=== PATIENT | female | born 1945 | race Caucasian/White ===

== ENCOUNTER 2019-07-20 22:07 | Inpatient (IN) | payer MEDICARE, MEDICAID ==
[~2019-07-20] VITALS: Ht 152.4 cm; Wt 68.0 kg
--- NOTE | ~2019-07-20 | PR ---
[place], [place] PROGRESS NOTE NAME: DESIRAE NICOLAS UNIT #: [id number] ROOM: 317 DOCTOR: JACKIE HAYDEN MD BIRTHDATE: [birth year] DOS: 07/26/2019 INTERVAL NOTE CHIEF COMPLAINT: "I slept well, but I'm worried about my son, he is not feeling well." SUMMARY OF THE VISIT: The patient was interviewed in the dining area. She had just started to eat her breakfast. She stopped and engaged in conversation with me, reporting that she tolerated the shot well. She talked to her son yesterday; however, and he is not feeling well and she is very worried. I did discuss the fact that she would have to stay at least another day as we were waiting for the recertification to occur at the skilled nursing level. She nodded in approval and was disappointed, but understood. MENTAL STATUS: She is alert and oriented with time gaps. Mood does seem to be trending towards euthymia. Affect is much more appropriate. There is no tamar, hypomania or psychosis. There is no tardive dyskinesia, extrapyramidal symptoms, sedation or somnolence. PLAN: I will maintain her current psychotropic regimen, continue to engage in individual and cassidy milieu activity, returning to the least restrictive environment when psychiatrically stable. JACKIE HAYDEN MD CM:PNTRANS [id number] JACKIE HAYDEN MD 07/26/19 1058 interface
--- NOTE | ~2019-07-20 | PR ---
[place], [place] PROGRESS NOTE NAME: DESIRAE NICOLAS UNIT #: [id number] ROOM: 317 DOCTOR: JACKIE HAYDEN MD BIRTHDATE: [birth year] DOS: 07/23/2019 INTERVAL NOTE CHIEF COMPLAINT: "I'm still seeing little animals, will that go away." SUMMARY OF THE VISIT: The patient was interviewed as she was finishing her breakfast. She once again reported that she is still seeing things. She also complains of significant pain, although she did tolerate the Zostrix well and is hopeful that it will help give her some relief. MENTAL STATUS: She is alert and oriented with some time gaps. Mood does seem to be trending more towards euthymia. Affect is more appropriate. She still endorses positive psychotic symptoms. Memory has mild gaps. PLAN: Given the fact that she has consistent pain. I will discontinue her Remeron in lieu of Cymbalta 30 mg twice daily. This will impact on mood. I will also positively impact on pain control. I will defer any further pain management to the hospitalist and their expertise. JACKIE HAYDEN MD CM:PNTRANS [id number] JACKIE HAYDEN MD 07/24/19 0145 interface
--- NOTE | ~2019-07-20 | PR ---
[place], [place] PROGRESS NOTE NAME: DESIRAE NICOLAS UNIT #: [id number] ROOM: 317 DOCTOR: JACKIE HAYDEN MD BIRTHDATE: [birth year] DOS: 07/24/2019 CHIEF COMPLAINT: "I feel so much better, thank you." SUMMARY OF THE VISIT: The patient was interviewed as she was sitting at the edge of the dining area. She had already eaten breakfast and was sipping on a cup of coffee. She engaged readily in conversation, reporting that the medication changes have helped and that she is feeling less pain, less depressed and that the voices in her head and the things that she is seeing have both dissipated more and more. She convincingly denies medication side effects. I detailed how she will receive her injection early tomorrow and that the dose will be slightly higher, at which time, I will discontinue her oral Invega. She nodded in approval. MENTAL STATUS: She is alert and oriented with minor time gaps. Mood does seem to be trending towards euthymia. Affect is much more appropriate. There is no tamar or hypomania. There is no gross psychosis. Short term, intermediate, and long-term memory for the most part are intact. PLAN: I will continue her current psychotropics. Engage in individual and cassidy milieu activity, returning to the least restrictive environment when psychiatrically stable. JACKIE HAYDEN MD CM:PNTRANS [id number] JACKIE HAYDEN MD 07/24/19 1222 interface
--- NOTE | ~2019-07-20 | PR ---
[place], [place] PROGRESS NOTE NAME: DESIRAE NICOLAS UNIT #: [id number] ROOM: 317 DOCTOR: JACKIE HAYDEN MD BIRTHDATE: [birth year] DOS: 07/22/2019 INTERVAL NOTE CHIEF COMPLAINT: "Oh, my back really hurts, but I was so pleased, they were able to do x-rays so quick." SUMMARY OF THE VISIT: The patient was interviewed in the dining area and later, she did ask to see me again and we talked briefly in the quiet room. She reports that she does feel that the medication change has helped and that her sleep has dramatically improved. She complained though of significant back pain that is very bothersome and was hoping that she would be able to get some relief. She tolerated the medication changes well and has voiced no other issues. MENTAL STATUS: She is alert and oriented. Mood does seem to be trending towards euthymia. Affect is more appropriate. There is no tamar or hypomania. There is no gross psychosis. Short-term memory has some mild gaps, but for the most part she is fully intact. PLAN: I will continue her current psychotropic regimen, but add Zostrix high potency cream t.i.d. to see if I can alleviate some of her back pain. Engage her in individual and cassidy milieu activity, returning to the least restrictive environment when psychiatrically stable. JACKIE HAYDEN MD CM:PNTRANS [id number] JACKIE HAYDEN MD 07/22/19 1002 interface
--- NOTE | ~2019-07-20 | PR ---
[place], [place] PROGRESS NOTE NAME: DESIRAE NICOLAS UNIT #: [id number] ROOM: 317 DOCTOR: JACKIE HAYDEN MD BIRTHDATE: [birth year] DOS: CHIEF COMPLAINT: "They had a democrat here yesterday and I did not go." SUMMARY OF THE VISIT: The patient was interviewed as she was sitting in the back of the dining room. She was convinced that there was a major democrat here yesterday and she did not go. She was rather bizarre in her presentation. She did not ask me once if she was going to be going home today, which is in delatorre contrast to how she has been previously. Nurses report other bizarre behavior and forgetfulness. MENTAL STATUS: She is alert and oriented to person, place, but not time. Mood does seem to be rather labile and inappropriate. There is no leatha tamar or hypomania. There is some delusional system present. Memory does have gaps. PLAN: I will discontinue her p.o. Invega as she has received the higher dose of the Invega Sustenna already. I will start her on Exelon patch 4.6 mg daily in an effort to maintain or improve ADLs, behavior and cognition. I will screen with UA to rule out a UTI. We will engage her in individual and cassidy milieu activity, returning to the least restrictive environment when psychiatrically stable. JACKIE HAYDEN MD CM:PNTRANS JACKIE HAYDEN MD 07/29/19 0848 interface
--- NOTE | ~2019-07-20 | PR ---
[place], [place] PROGRESS NOTE NAME: DESIRAE NICOLAS UNIT #: [id number] ROOM: 317 DOCTOR: JACKIE HAYDEN MD BIRTHDATE: [birth year] DOS: 07/27/2019 INTERVAL NOTE CHIEF COMPLAINT: "Oh, my son is so sick with a cold, I hope he takes care of himself." SUMMARY OF THE VISIT: The patient was interviewed as she was finishing her breakfast. She engaged readily in conversation, still concerned about her son's health stating that he has a very bad cold and she was concerned about him. She was uncertain if her son was the one that was going to pick her up and if so, he might not be able to do it given his schedule. Otherwise, she reports tolerating the increased dose of the Invega Sustenna well. She does not have any sedation or somnolence. There is no tardive dyskinesia or extrapyramidal symptoms. She also is not sedate in any way from any of the medicines. MENTAL STATUS: She is alert and oriented with some time gaps. Mood does seem to be strongly trending towards euthymia. Affect is more appropriate. There is no tamar, hypomania or psychosis. Memory has some minor gaps, otherwise she is intact. PLAN: I will continue her current psychotropic regimen, continue to engage in individual and cassidy milieu activity, returning to the least restrictive environment when psychiatrically stable. JACKIE HAYDEN MD CM:PNTRANS JACKIE HAYDEN MD 07/27/19 0858 interface
--- NOTE | ~2019-07-20 | WRIGHTHP ---
[place], [place] PATIENT HISTORY AND PHYSICAL EXAM NAME: DESIRAE NICOLAS UNIT #: [id number] ROOM: 317 DOCTOR: JACKIE HAYDEN MD BIRTHDATE: [birth year] DOS: 07/21/2019 CHIEF COMPLAINT: "I have been seeing and hearing things, it has been scaring me." HISTORY OF PRESENT ILLNESS: This is a 73-year-old white female who resides at [facility] in [place], [place]. The patient has a lengthy history of depression as well as psychotic symptomatology. Most recently, her depression has worsened and she has become grossly paranoid and believes that people are watching her when she uses the bathroom and have been following her throughout the facility. She openly admits to hearing voices in her head and seeing things that she realizes are not there. She oftentimes will see animals moving across the floor. This has been more scary for her and she has not been sleeping or eating well. She is admitted now to rule out further organic factors and attempt to stabilize on medication. PAST MEDICAL HISTORY: Remarkable for anemia, history of bipolar disorder, hypertension, hyperlipidemia, hypothyroidism, vitamin D deficiency and schizoaffective disorder. SOCIAL HISTORY: She does not smoke cigarettes, drink alcohol or use illicit drugs. ALLERGIES: SHE LISTS ALLERGIES TO IVP DYE, PENICILLINS, CODEINE, FLUOXETINE, MEPERIDINE, MORPHINE AND PHENAZOPYRIDINE. STRENGTHS: Good verbal skills. WEAKNESSES: Chronic mental health issues, poor coping skills. MENTAL STATUS: On admission, the patient is alert and oriented to person, place, and approximate to time. Mood does seem to be overwhelmingly depressed and she cried throughout the interview. She also is grossly psychotic and openly admits to visual and auditory hallucinations that are scary. There is no agitation or aggression directed towards me. Short term memory does have some gaps, otherwise she is intact. DIAGNOSIS: Major depression, recurrent with psychotic features, rule out schizoaffective disorder. PLAN: I will maintain her on Remeron 15 mg at bedtime. Routine screening examinations reveal a vitamin B12 level that is low at 240, so I will use vitamin B12 injection 1000 mcg IM monthly. She gets an Invega Sustenna injection of 117 mg monthly due on the of the month. She seems to be having breakthrough so I will go ahead and increase her Invega Sustenna maintenance dose to 156 mg IM every month and start this on 07/25/2019. Meanwhile, I will do Invega 3 mg a day to augment the effectiveness of the medication regimen. We will engage her in individual and cassidy milieu activity, returning to the least restrictive environment when psychiatrically stable. [place], [place] PATIENT HISTORY AND PHYSICAL EXAM NAME: DESIRAE NICOLAS UNIT #: [id number] ROOM: [facility] DOCTOR: JACKIE HAYDEN MD BIRTHDATE: [birth year] JACKIE HAYDEN MD CM:HISPHYS:PATIENT HISTORY AND PHYSICAL EXAMINATION [id number] JACKIE HAYDEN MD 07/21/19 1028 interface
--- NOTE | ~2019-07-20 | DS ---
[place], [place] DISCHARGE SUMMARY NAME: DESIRAE NICOLAS UNIT #: [id number] ROOM: 317 DOCTOR: JACKIE HAYDEN MD BIRTHDATE: [birth year] DOS: 08/01/2019 CHIEF COMPLAINT: "I have been seeing and hearing things. It has been scaring me." HISTORY OF PRESENT ILLNESS: This is a 73-year-old white female who resides at [facility] in [place], [place]. The patient has a lengthy history of depression as well as psychotic symptomatology. Most recently, her depression has worsened and she has become grossly paranoid and believes that people are watching her when she uses the bathroom and have been following her throughout the facility. She openly admits to hearing voices in her head and seeing things that she realizes are not there. Often times, she will see animals moving across the floor and realizes that they are not there, but it scares her nonetheless. She has not been sleeping well or eating well because of it and she has not been attending to her ADLs. She is now admitted to rule out organic factors, to stabilize on medication, to engage in individual and cassidy milieu activity, returning then to the least restrictive environment when psychiatrically stable. SUMMARY OF HOSPITAL COURSE: The patient was admitted to the unit where routine examinations revealed a vitamin B12 level that was low at 240, so she was given a vitamin B12 injection of 1000 mcg IM monthly. The patient was receiving Invega Sustenna injections of 117 mg monthly; however, it seems like her psychotic symptomatology was breaking through earlier than the next injection was due. For this reason, the patient was given her neck next injection earlier than previously needed and at the dose of 156 mg. This seemed to break the psychosis dramatically. The patient was maintained on Remeron as an antidepressant, but Cymbalta 30 mg a day was added, later increased to 30 mg twice daily. The hope was that the Cymbalta would impact on her depression as well as decreasing her pain and it mixed well with the Remeron as she felt much better with that combination, the patient was able to sleep through the night. She was eating better. She was attending to her ADLs and she was voicing positive plans for the future. She tolerated the increase in the Invega Sustenna and the addition of the Cymbalta well. There was no sedation, somnolence, extrapyramidal symptoms or tardive dyskinesia. The patient returned back to [facility] where I will be the treating psychiatrist of record. MENTAL STATUS AT DISCHARGE: She is alert and oriented with some time gaps. Mood does seem to be more euthymic. Affect is more appropriate. There is no tamar, hypomania or psychosis. There is no sedation, somnolence, extrapyramidal symptoms or tardive dyskinesia. FINAL DIAGNOSES UPON DISCHARGE: Major depression, recurrent with psychotic features and Alzheimer's dementia. DISPOSITION: All of her prescriptions have been e-scribed to [facility], a long-term care pharmacy. The patient is returning back to [facility]. I will be the treating psychiatrist of record. At the time of discharge, she was medically and psychiatrically stable. [place], [place] DISCHARGE SUMMARY NAME: DESIRAE NICOLAS UNIT #: [id number] ROOM: [facility] DOCTOR: JACKIE HAYDEN MD BIRTHDATE: [birth year] ADDENDUM: CHIEF COMPLAINT: "Oh, call my son, I am so happy. I am going home." SUMMARY OF THE VISIT: The patient was evaluated as she was sitting in a [place]. She was pleasant and cooperative upon approach, fixated on getting a hold of her son. She was happy to hear finally that she was returning back to [facility]. Overall, her speech was much more goal oriented than she was not expressing mood lability or depression. She also outwardly was tolerating the medicine well. MENTAL STATUS AT DISCHARGE: The patient is alert and oriented to person, place, not time. Mood does seem to be euthymic. Affect is much more appropriate. Speech rate and pattern is within normal limits. There is no tamar, hypomania or psychosis. Short term memory is still problematic. DISCHARGE DIAGNOSIS AND DISPOSITION: As per the discharge summary dictated on 08/01/2019. PLAN: All of her prescriptions have been e-scribed to [facility], a long-term care provider. She will be returning to [facility] where I will be the treating psychiatrist of record. JACKIE HAYDEN MD CM:DISCHARG [phone] JACKIE HAYDEN MD 08/04/19 1042 interface
--- NOTE | ~2019-07-20 | PR ---
[place], [place] PROGRESS NOTE NAME: DESIRAE NICOLAS UNIT #: [id number] ROOM: 317 DOCTOR: ABIMAEL BEEBE CNP BIRTHDATE: [birth year] DOS: 07/30/2019 CHIEF COMPLAINT: "We all got together, did not we." SUMMARY OF THE VISIT: The patient was interviewed as she sat in the dining room, eating her breakfast. She engaged readily in conversation with me. She reports that she did sleep well last night. She denies any auditory or visual hallucinations. Staff reports that this patient has attempted to put herself on the floor and has attempted to be exit seeking. She is requesting that she leave today. The patient's urinalysis did have leukocytes and bacteria, so a urine culture is currently pending. MENTAL STATUS EXAMINATION: The patient is alert and oriented to person and place. She was pleasant and cooperative with me. No tamar or hypomania noted. No delusions or paranoia noted. No psychotic symptoms noted. No auditory or visual hallucinations noted. The patient's mood was calm. Her affect is congruent with mood. No agitation, irritability or aggression noted at this time. PLAN: We will continue the patient's medications as prescribed. She appears to be tolerating them without any side effects. We are currently awaiting the patient's urine culture results to rule out that the patient does have urinary tract infection. In the meantime, we will encourage the patient to engage in individual and cassidy milieu activity. Continue fall and safety precautions. Plan is to return the patient to least restrictive environment when she is considered psychiatrically stable. Abimael Beebe CNP CM:PNTRANS [id number] ABIMAEL BEEBE CNP 07/30/19 0932 interface
--- NOTE | ~2019-07-20 | PR ---
[place], [place] PROGRESS NOTE NAME: DESIRAE NICOLAS UNIT #: [id number] ROOM: 317 DOCTOR: JACKIE HAYDEN MD BIRTHDATE: [birth year] DOS: 07/25/2019 CHIEF COMPLAINT: "Oh, I just love you, thank you for helping me." SUMMARY OF THE VISIT: The patient was interviewed as she was finishing her breakfast. We chatted as to the game plan, which is for her to receive her dose of Invega Sustenna slightly earlier than expected and at the higher dose of 156 mg q. month now versus 117. She asked if after the injection if she could go home, but I deferred that I would like 24 hours after the injection to monitor her closely for the presence or absence of side effects. She nodded in approval. Otherwise, she reports that the medication changes have made a great impact on her positively and she is feeling happier in less pain and less anxious. She convincingly denies medication side effects. MENTAL STATUS: She is alert and oriented to person, place and time. Mood does seem to be strongly trending towards euthymia. Affect is more appropriate. There is no tamar, hypomania or psychosis. Memory for the most part is intact. PLAN: She is scheduled to have Invega Sustenna 156 mg IM today. Given that fact, I will discontinue her oral Invega. We will monitor and support, engage her in individual and cassidy milieu activities, returning to the least restrictive environment when psychiatrically stable. JACKIE HAYDEN MD CM:PNTRANS [id number] JACKIE HAYDEN MD 07/25/19 1026 interface
--- NOTE | ~2019-07-20 | PR ---
[place], [place] PROGRESS NOTE NAME: DESIRAE NICOLAS UNIT #: [id number] ROOM: 317 DOCTOR: ABIMAEL BEEBE CNP BIRTHDATE: [birth year] DOS: 07/31/2019 CHIEF COMPLAINT: "I am going to keep mumbling." SUMMARY OF THE VISIT: The patient was interviewed as she sat in the dining room, eating her breakfast. The patient did not want to engage in any conversation with me. The patient did not want to open her eyes. She had to continue to be encouraged by staff to eat her breakfast. Staff reports that the patient has seemed more confused this morning. She was given a p.r.n. Ativan at 5:30 last night for increased agitation and irritability. She did put herself on the floor last night. It was witnessed by her peers. MENTAL STATUS EXAMINATION: The patient is alert and oriented to herself. She is irritable, not cooperative with me this morning. No overt tamar or hypomania noted. No delusions or paranoia noted. No psychotic symptoms noted. No auditory or visual hallucinations noted. The patient's mood agitated. Affect congruent with mood. No aggression noted. PLAN: The urine culture and sensitivity is still pending. I will increase the patient's Exelon to 9.5 mg to try to increase awareness and cognition. I am also going to order a serum ammonia level to be drawn in the morning. Continue to encourage the patient to engage in individual and cassidy milieu activity. Continue fall and safety precautions. Plan is to return the patient to the least restrictive environment when she is considered psychiatrically stable. Abimael Beebe CNP CM:PNTRANS 0956 ABIMAEL BEEBE CNP 07/31/19 0957 interface
--- NOTE | ~2019-07-20 | PR ---
[place], [place] PROGRESS NOTE NAME: DESIRAE NICOLAS UNIT #: [id number] ROOM: 317 DOCTOR: JACKIE HAYDEN MD BIRTHDATE: [birth year] DOS: 07/28/2019 INTERVAL NOTE CHIEF COMPLAINT: "This is ridiculous that I am still here. Why can't I go back to my home." SUMMARY OF THE VISIT: The patient was interviewed as she was wheeling up and down the hallway. She stopped and engaged in conversation. She was initially very angry with me because she was still here and I explained to her the holdup is purely because of the paperwork not being done by state. She very angrily then stated that she wanted to report the state to someone because she is here longer than she needs to be and wants to go back to her [facility]. She was pleasant and cooperative otherwise. There is no tamar, hypomania or psychosis and there is no medication side effect. MENTAL STATUS: She is alert and oriented with some minor time gaps. Mood does seem to be euthymic. Affect is appropriate. There is no tamar, hypomania or psychotic symptoms noted. PLAN: At this point, we are simply waiting for the paperwork from the state to come in, so that I may discharge her appropriately back to the long-term care facility. She has been here many days past the time that she needed to be here all because of the lack of paperwork being done in a timely fashion. JACKIE HAYDEN MD CM:PNTRANS [phone] JACKIE HAYDEN MD 07/28/19 1032 interface
--- NOTE | ~2019-07-20 | CON ---
[place], [place] REPORT OF CONSULTATION NAME: DESIRAE NICOLAS UNIT #: [id number] ROOM: 317 DOCTOR: TITUS, FARAZ BIRTHDATE: [birth year] DOS: 08/01/2019 HISTORY OF PRESENT ILLNESS: The patient is a 73-year-old female referred by Dr. Pantoja for competency evaluation. At the present time, the patient is on the 3rd floor at [facility]. The patient is a resident at [facility]. She has a long history of depression with psychosis. She was admitted to the [facility] after her depression worsened and she became paranoid and was hallucinating. She does not drink alcohol or use illegal drugs or smoke cigarettes and that history was limited to her condition. PAST MEDICAL HISTORY: Anemia, bipolar disorder, hypertension, hyperlipidemia, hypothyroidism, vitamin D deficiency, schizoaffective disorder. MEDICATIONS: Exelon, Invega Sustenna, Maalox, Cymbalta, Zostrix, Remeron, B12, Zocor, Toprol-XL, Esidrix, Feosol, vitamin D, aspirin enteric coated, Cogentin, Lamictal, Synthroid, Ultram, Geodon, Ativan. The patient was lying comfortably, in no apparent distress. She was somnolent. She was oriented to person, month and year. Mood was stable. Affect was flat. There was no suicidal or homicidal ideation, plan or intent. She responded to questions with one word answers. Speech was slurred. She was not able to provide her past medical history or any medications she is taking. She does not appear to be responding to internal stimuli. In my opinion, she is not competent to make informed healthcare decisions. DIAGNOSES: Unspecified, neurocognitive disorder; major depressive disorder, recurrent with psychotic features. RECOMMENDATIONS: In my opinion, the patient is not competent to make informed healthcare decisions. She may benefit from guardianship if her cognition does not improve. Thank you very much for this consult. Helga Navarro, PhD CM:CONSTR:REPORT OF CONSULTATION [id number] 08/02/19 1312 interface
[2019-07-20] MEDS ORDERED: ASPIR 8181 MG PO (22:23)
[2019-07-20] MEDS ORDERED: CETIRIZINE HCL10 MG PO (22:23)
[2019-07-20] MEDS ORDERED: FEOSOL325 MG PO (22:24)
[2019-07-20] MEDS ORDERED: HYDR12.5C PO (22:25)
[2019-07-20] MEDS ORDERED: INVEGA SUSTENN117 MG IM (22:26)
[2019-07-20] MEDS ORDERED: LEVOTHYROXINE150 MCG PO (22:27)
[2019-07-20] MEDS ORDERED: METOPROLOL SUCC50 M1 PO (22:28)
[2019-07-20] MEDS ORDERED: POTASSIUM20 MEQ/16 PO (22:29)
[2019-07-20] MEDS ORDERED: SENNA8.6 MG PO (22:30)
[2019-07-20] MEDS ORDERED: REMERON30 M1 PO (22:30)
[2019-07-20] MEDS ORDERED: SIMVASTATIN40 MG PO (22:31)
[2019-07-20] MEDS ORDERED: VITAMIN D31000 UNI1 PO (22:32)
[2019-07-20] MEDS ORDERED: LAMICTAL200 MG PO (22:32)
[2019-07-20] MEDS ORDERED: ACETAMINOPHEN325 M2 PO (22:33)
[2019-07-20] MEDS ORDERED: BENZTROPINE MESY1 MG PO (22:33)
[2019-07-20] MEDS ORDERED: ATIVAN0.5 MG PO (22:36)
[2019-07-20] MEDS ORDERED: [UNRECOGNIZED DRUG - OTHER] PO (22:38)
[2019-07-20] MEDS ORDERED: HYDROXYZINE PAM25 M1 PO (22:39)
[2019-07-20] MEDS ORDERED: MILK OF MA400 MG/51 PO (22:40)
[2019-07-20] MEDS ORDERED: MYLANTA MAXIMU355 M1 PO (22:41)
[2019-07-20] MEDS ORDERED: TRAMADOL HCL50 MG PO (22:42)
[2019-07-21 01:10] VITALS: BP 136/87
[2019-07-21 01:45] VITALS: BP 136/87
[2019-07-21 07:02] LABS: CHOLESTEROL 123 mg/dL (<200); HDL CHOLESTEROL 51 mg/dl (40-60); LDL CHOLESTEROL 60 mg/dL (9-159); TRIGLYCERIDES 61 mg/dl (<150); VLDL CHOLESTEROL 12 mg/dL (6-40)
[2019-07-21 08:00] VITALS: BP 129/60
[2019-07-21 08:59] LABS: VITAMIN D, 25-HYDROXY 35.9 ng/mL (30-100)
[2019-07-21 20:28] VITALS: BP 110/88
[2019-07-22 08:00] VITALS: BP 117/65
[2019-07-22 19:59] VITALS: BP 130/60
[2019-07-23 07:38] VITALS: BP 136/65
[2019-07-23 19:34] VITALS: BP 131/55
[2019-07-24 07:22] VITALS: BP 102/58
[2019-07-24 19:38] VITALS: BP 101/60
[2019-07-25 09:07] VITALS: BP 118/76
[2019-07-25 19:19] VITALS: BP 125/54
[2019-07-26 08:00] VITALS: BP 123/69
[2019-07-26 19:03] VITALS: BP 120/53
[2019-07-27 08:00] VITALS: BP 127/56
[2019-07-27 19:36] VITALS: BP 130/67
[2019-07-28 08:05] VITALS: BP 137/64
[2019-07-28 19:12] VITALS: BP 129/61
[2019-07-29 07:49] VITALS: BP 135/62
[2019-07-29 15:37] LABS: BILIRUBIN NEGATIVE (NEGATIVE); BLOOD NEGATIVE (NEGATIVE); CLARITY CLEAR (CLEAR); COLOR YELLOW (YELLOW); GLUCOSE NEGATIVE (NEGATIVE); KETONE NEGATIVE (NEGATIVE); LEUKO ESTERASE 1+ (NEGATIVE); NITRITE NEGATIVE (NEGATIVE); UROBILINOGEN 0.2 E.U./dl (0.2-1.0)
[2019-07-29 15:43] LABS: BACTERIA 2+; RBC 0-2 rbc/hpf (0-2)
[2019-07-29 19:14] VITALS: BP 134/58
[2019-07-30 07:25] VITALS: BP 106/70
[2019-07-30 19:11] VITALS: BP 120/61
[2019-07-31 07:44] VITALS: BP 135/67
[2019-07-31 19:49] VITALS: BP 137/70
[2019-08-01 07:34] VITALS: BP 116/75
[2019-08-01] MEDS ORDERED: BENZTROPINE MESY1 MG PO (08:44)
[2019-08-01] MEDS ORDERED: RIVASTIGMINE1 EAC1 T (08:44)
[2019-08-01] MEDS ORDERED: INVEGA SUSTENN156 MG IM (08:44)
[2019-08-01] MEDS ORDERED: DULOXETINE HCL30 MG PO (08:44)
[2019-08-01] MEDS ORDERED: MIRTAZAPINE15 M2 PO (08:44)
[2019-08-01] MEDS ORDERED: B121000 MCG/1 IM (08:44)
[2019-08-01] MEDS ORDERED: ARTHRITIS PAIN57 GM T (08:45)
[2019-08-01 19:47] VITALS: BP 112/72
[2019-08-02 07:33] VITALS: BP 141/64
[2019-08-02 19:54] VITALS: BP 132/60
[2019-08-03 07:32] VITALS: BP 136/74
[2019-08-03 19:30] VITALS: BP 130/70
[2019-08-04 07:46] VITALS: BP 118/61
[2019-08-04] MEDS ORDERED: PALIPERIDONE ER6 MG PO (10:11)
== END 2019-08-04 13:36 | DRG 885 ==
LOC: 3N 22:07
PROVIDERS: ADMIT Psychiatry & Neurology Psychiatry
DX: F33.3 Major depressive disorder, recurrent, severe with psychotic symptoms (principal); N30.00 Acute cystitis without hematuria; E66.3 Overweight; R73.9 Hyperglycemia, unspecified; F41.9 Anxiety disorder, unspecified; E03.9 Hypothyroidism, unspecified; I10 Essential (primary) hypertension; R41.9 Unspecified symptoms and signs involving cognitive functions and awareness; E55.9 Vitamin D deficiency, unspecified; E78.5 Hyperlipidemia, unspecified; M54.9 Dorsalgia, unspecified; G30.9 Alzheimer's disease, unspecified; F02.80 Dementia in other diseases classified elsewhere, unspecified severity, without behavioral disturbance, psychotic disturbance, mood disturbance, and anxiety; Z88.0 Allergy status to penicillin; Z88.5 Allergy status to narcotic agent; Z88.8 Allergy status to other drugs, medicaments and biological substances; Z91.041 Radiographic dye allergy status; Z79.82 Long term (current) use of aspirin; Z79.899 Other long term (current) drug therapy; Z68.29 Body mass index [BMI] 29.0-29.9, adult

== ENCOUNTER 2019-08-12 13:33 | Inpatient (IN) | payer MEDICARE, MEDICAID ==
[~2019-08-12] VITALS: Ht 152.4 cm; Wt 66.4 kg
[~2019-08-12 13:33] MED LIST: ACETAMINOPHEN325 M2 PO; ARTHRITIS PAIN57 GM T; ASPIR 8181 MG PO; ATIVAN0.5 MG PO; B121000 MCG/1 IM; BENZTROPINE MESY1 MG PO; CETIRIZINE HCL10 MG PO; DULOXETINE HCL30 MG PO; FEOSOL325 MG PO; HYDR12.5C PO; HYDROXYZINE PAM25 M1 PO; INVEGA SUSTENN117 MG IM; INVEGA SUSTENN156 MG IM; LAMICTAL200 MG PO; LEVOTHYROXINE150 MCG PO; METOPROLOL SUCC50 M1 PO; MILK OF MA400 MG/51 PO; MIRTAZAPINE15 M2 PO; MYLANTA MAXIMU355 M1 PO; PALIPERIDONE ER6 MG PO; POTASSIUM20 MEQ/16 PO; REMERON30 M1 PO; RIVASTIGMINE1 EAC1 T; SENNA8.6 MG PO; SIMVASTATIN40 MG PO; TRAMADOL HCL50 MG PO; VITAMIN D31000 UNI1 PO; [UNRECOGNIZED DRUG - OTHER] PO
[2019-08-12] MEDS ORDERED: RISPERDAL1 M1 PO (15:04)
[2019-08-12 20:00] VITALS: BP 152/78
--- NOTE | 2019-08-12 20:15 | NUR ---
DESIRAE NICOLAS a 73 year old F admitted via wheel chair from the EMERGENCY ROOM as a voluntary by POA admission. Arrived on unit at 2000PM. ALLERGIES: CODIENE, FLUOXETINE, DEMEROL, MORPHONE, PCN, IVP DYE, PHENAZOPYRIDINE. Vital signs are: -- . The POA signed the following forms with stated understanding: Authorization For The Release of Medical Information, Clothing List, Consent to Voluntary Admission and Hospitalization, Consent and Release Forms/Receipt of Rights, Acknowledgement of Advance Directive Information, Behavioral Health Consent Form, and Informed Consent of Medications. Admitted under the services of Dr. CATRACHO WATTJACKIE. A search was conducted and hazardous articles were removed. Client was oriented to the unit. CLIENT IS CONFUSED TO DATE AND TIME. THINKS I AM HER MOTHER. DIFFICULTY TO REDIRECT AT THIS TIME. PLEASENT AND COOPERATIVE BUT UNABLE TO FULLY PARTICIPATE WITH ASSESSMENT. REFUSES SKIN ASSESSMENT STATING "I HAVE NO WOUNDS" MACY CRISTOBAL
--- NOTE | 2019-08-12 20:23 | NUR ---
DR VILLALOBOS NOTIFIED OF ADMISSION AT 2019PM PHYLICIA SMITH NOTIFIED OF ADMISSION AT M
[2019-08-12 21:00] VITALS: BP 152/78
--- NOTE | 2019-08-13 03:30 | NUR ---
24 HR chart check completed.
--- NOTE | 2019-08-13 05:26 | NUR ---
SLEPT WELL PAST 2200PM
[2019-08-13 07:28] LABS: THYROID STIM HORMONE (HS) 8.12 uIU/ml (0.358-4.75)
[2019-08-13 07:48] VITALS: BP 122/64
--- NOTE | 2019-08-13 08:00 | NUR ---
Patient resting quietly with no c/o discomfort. Respirations easy and regular. Vital signs stable. No overt distress. ANURAG LEE
[2019-08-13 08:54] LABS: VITAMIN D, 25-HYDROXY 33.6 ng/mL (30-100)
--- NOTE | 2019-08-13 11:53 | NUR ---
AM GROUP/EXERCISES/BALL TOSS PT ATTENDED BUT SLEPT IN CHAIR IN BACK OF ROOM ENTIRE GROUP. PT WILL CONTINUE TO ATTEND AND BE ENCOURAGED TO PARTICIPATE TO BEST OF PT ABILITY.
--- NOTE | 2019-08-13 12:13 | NUR ---
PT PLEASANT THIS AM, PT PRESENTS WITH SOME DIFFICULTY STAYING ON TASK IN CUTTING UP TOAST FOR BREAKFAST TRAY AND FALLING ASLEEP WHILE EATING LUNCH. PT REDIRECTED, PROVIDED WITH ENCOURAGEMENT AND ASSISTANCE AT MEALS. PT RECEPTIVE, TAKING SMALL BITES INDEPENDENTLY WITH SOME ENCOURAGEMENT. WILL CONTINUE TO REDIRECT PT TO TASK WHEN APPROPRIATE. WILL CONTINUE TO ADMINISTER MEDICATIONS PER ORDER. Q 15 MIN MONITORING PER POLICY.
--- NOTE | 2019-08-13 15:39 | NUR ---
PM GROUP/LEISURE SKILLS PT ATTENDED AND PARTICIPATED BY COLORING A [employer] PICTURE. PT TAKES A WHILE TO DO A LITTLE BIT BUT STATES "I'M FEELING MUCH BETTER RIGHT NOW". PT WILL CONTINUE TO ATTEND AND PARTICIPATE IN FUTURE GROUP SESSIONS TO BEST OF PT ABILITY.
--- NOTE | 2019-08-13 18:10 | NUR ---
psychosocial hx was completed last admission which was within 30 days, please refer to that hx. please see short and watermelon harvesting supervisor goals.
[2019-08-13 19:44] VITALS: BP 121/61
--- NOTE | 2019-08-13 21:06 | NUR ---
PLEASENT HAPPY AND COOPERATIVE. ORIENTED TO SELF, PLACE AND PARTIAL TIME. ATE WELL FOR SNACK. MEDICATION EDUCATION COMPLETED. STATES SHE HAD A GOOD DAY. NO SIGNS OF HALLUCINATIONS, CRYING FOR MOMMY OR CRAWLING ON FLOOR. WILL CONTINUE TO MONITOR FOR CHANGES IN MOOD/BEHAVIOR
--- NOTE | 2019-08-14 01:23 | NUR ---
24 HR chart check completed.
--- NOTE | 2019-08-14 05:32 | NUR ---
SLEPT WELL PAST 2230PM
--- NOTE | 2019-08-14 06:24 | NUR ---
ONE INCIDENT OF CONFUSION THIS MORNING. CALLING [facility]
[2019-08-14 07:37] VITALS: BP 140/57
--- NOTE | 2019-08-14 08:06 | NUR ---
Patient resting quietly with no c/o discomfort. Respirations easy and regular. Vital signs stable. No overt distress. ANURAG LEE
--- NOTE | 2019-08-14 12:36 | NUR ---
PT HAS HAD NO ADVERSE MOODS OR BEHAVIORS THIS SHIFT. PT IS ALERT TO PERSON AND APPROXIMATE TO TIME, ABLE TO STATE TIME AND YEAR. PT IS ACTIVELY PARTICIPATING IN ACTIVITY, COLORING WITH STAFF AND PEERS. PT MOOD IS PLEASANT, COOPERATIVE. PT IS ABLE TO STAY MORE FOCUSED ON TASK AT HAND TODAY, ABLE TO FEED SELF ENTIRE MEAL WITHOUT BECOMING DISTRACTED. WILL CONTINUE TO ADMINISTER MEDICATIONS AND MONITOR BEHAVIORS. WILL CONTINUE TO MONITOR Q15 MIN PER POLICY FOR SAFETY.
[2019-08-14 20:03] VITALS: BP 121/62
--- NOTE | 2019-08-14 23:06 | NUR ---
P-CONFUSION, NONSENSICAL SPEECH, CALLING STAFF "MOMMY". I-ASSESS ORIENTATION. PRESENT REALITY OR REDIRECT NEEDED. PROVIDE 1:1 WITH THERAPEUTIC INTERVENTIONS. ENCOURAGE MEDICATION COMPLIANCE AND EDUCATE. MONITOR SLEEP. R-"IM LOOKING FOR MY JINGLE BELLS, ITS JUST THAT, IT, COMING AROUND, PEANUT BUTTER". PT ALERT TO PERSON WITH CONFUSION, ST/LT MEMORY DEFICITS NOTED. PT'S SPEECH REMAINS NONSENSICAL WITH FLIGHT OF IDEAS. PT MINIMALLY RECEPTIVE REALITY PRESENTATION AND REQUIRES FREQUENT REDIRECTION THROUGHOUT SHIFT. PTS MOOD EUTHYMIC, PREOCCUPIED WITH SELF, OBSERVED BY STAFF SINGING THE ALPHABET AND NUMBERS. PT COMPLIANT WITH HS SNACK AND HS MEDICATION WITHOUT DIFFICULTY. UNABLE TO PROVIDE MEDICATION EDUCATION DUE TO COGNITION. PT VOICES NO SI/HI, HALLUCINATIONS, OR PAIN. NO PARANOIA/DELUSIONS NOTED. PT'S GAIT UNSTEADY, MOBILIZES SELF THROUGHOUT UNIT WITH A MERRY WALKER. COOPERATIVE WITH ADL'S, ASSIST X1. PT RESTING QUIETLY WITH EYES CLOSED. RESPIRATIONS EASY AND REGULAR, NO SIGNS OR SYMPTOMS OF DISTRESS NOTED. P-CONTINUE TO MONITOR MOOD AND BEHAVIORS. PROVIDE 1:1 WITH THERAPEUTIC INTERVENTIONS. PRESENT REALITY AND REDIRECT NEEDED. ENCOURAGE MEDICATION COMPLIANCE AND EDUCATE. MAINTAIN Q 15 MIN CHECKS.
--- NOTE | 2019-08-15 04:41 | NUR ---
24 HOUR CHART CHECK COMPLETED.
--- NOTE | 2019-08-15 05:39 | NUR ---
PATIENT OBSERVED ON Q 15 MIN CHECKS TO HAVE SLEPT APPROX 7 HOURS WITH X1 BRIEF AWAKENING TO USE THE RESTROOM WITH ASSISTANCE. NO SIGNS OR SYMPTOMS OF DISTRESS NOTED.
--- NOTE | 2019-08-15 07:30 | NUR ---
Patient resting quietly with no c/o discomfort. Respirations easy and regular. Vital signs stable. No overt distress. PHYLICIA BERGER
--- NOTE | 2019-08-15 08:15 | NUR ---
Treatment Plan meeting was held this a.m. with Dr. Pantoja, RN, AT, BAR MACHINE OPERATOR MULTIPLE SPINDLE-S and School Traffic Guard. Plan for discharge at the end of the week, beginning of next week. Pt. came to [facility] from [facility]. Will reach out to facility today to discuss discharge plans.
[2019-08-15 08:29] VITALS: BP 127/61
--- NOTE | 2019-08-15 08:53 | NUR ---
DR. CHARLES ON UNIT TO ASSESS PATIENT.
--- NOTE | 2019-08-15 10:10 | NUR ---
Spoke with Nola in Admissions at [facility]. Pt. will return to facility at discharge. Clinical Updates Faxed to Facility.
--- NOTE | 2019-08-15 14:43 | NUR ---
Patient was very confused this afternoon. She kept speaking of Tami and that she needed to get to her. At one point, she thought this financial writer was Tami. Attempted to redirect pt to a different topic but pt would return to speaking of Tami.
--- NOTE | 2019-08-15 18:08 | NUR ---
PATIENT IN DINING ROOM WITH OTHER PATIENTS AND FAMILY VISITOR. PERSONAL ALARM SOUNDING. PATIENT OBSERVED HOPPING SELF OUT OF CHAIR AND ON TO FLOOR. VISITORS REPORTED TO STAFF THAT PAIENT DID NOT HIT HEAD. DR. INGRAM ON UNIT AT THIS TIME, ASSESSED PATIENT. PATIENT ASSISTED FROM FLOOR INTO GERICHAIR. PATIENT IRRITABLE AND ANXIOUS, YELLING AT STAFF "I WANT TO GO HOME" VITALS: T:97.4, 102/52, 89, 18, 95%RA, VITALS REPORTED TO DR. INGRAM WHILE ON UNIT. CONTINUE TO MONITOR AT THIS TIME. CHANNEL CEMENTER OUTSOLE MACHINE AND DESIGN PRINTER BALLOON NOTIFIED. CALLED POA WITH SEVERAL ATTEMPTS. PHONE RANG BUSY.
[2019-08-15 20:00] VITALS: BP 110/62
--- NOTE | 2019-08-15 20:27 | NUR ---
EVENING/MOVIE PT INVITED TO JOIN GROUP BUT STATES WITH AGITATION "I DONT WANT TO WATCH A MOVIE I WANT TO GO HOME!" PT WILL CONTINUE TO BE ENCOURAGED TO ATTEND AN DPARTICIPATE IN FUTURE GROUP SESSIONS TO BEST OF ABILITY.
--- NOTE | 2019-08-15 21:05 | NUR ---
P--CONFUSION I--DISCUSSED DAYS EVENTS WITH CLIENT. OFFERED COPING SKILLS TO HELP. CLIENT ABLE TO REMEMBER MY NAME. REVIEWED MEDICATIONS R--MACY I NEED MY MEDICINES. I FELL TODAY BECAUSE I WAS TRYING TO HELP TYSON. P-MONITOR FOR MOOD/BEHAVIOR CHANGES AND SAFETY.
--- NOTE | 2019-08-16 02:47 | NUR ---
24 HR chart check completed.
--- NOTE | 2019-08-16 06:02 | NUR ---
SLEPT 8 UNBROKEN HOURS. MOVES SELF AROUND IN BED. CONTINUE MONITORING Q 15 MINS AND PRN FOR SAFETY
[2019-08-16 08:14] VITALS: BP 122/57
--- NOTE | 2019-08-16 08:15 | NUR ---
Treatment Plan meeting was held this a.m. with Dr. Pantoja, RN, AT, SHORE WORKER-S and Grinder Mill Operator. plan for discharge Next week. At this point Patient will return to [facility] at discharge.
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
--- NOTE | 2019-08-16 10:32 | NUR ---
PRN ATIVAN EFFECTIVE; PATEINT IN CALM DEMEANOR, WATCHING TV IN DINING ROOM.
--- NOTE | 2019-08-16 10:46 | NUR ---
DR. ALVAREZ ON UNIT TO ASSESS PATEINT.
--- NOTE | 2019-08-16 11:34 | NUR ---
AM GROUP PT ATTENDED MORNING GROUP THERAPY AND PARTICIPATED BY COLORING WITH MARKERS. PT WAS FOCUSED ON "CALLING USAMA" AND WHILE COLORING REPEATED OVER AND OVER, "USAMA,AJ,USAMA" PT BEGAN COLORING ON THE TABLE AND ON HER HAND. PT WAS REDIRECTED BUT WAS NOTED TO BE COLORING WITH HER EYES CLOSED. PT WAS GIVE A WIPE AND CLEANED BOTH HER HAND AND THE TABLE. PT EXHIBITED NO AGITATION AND EXPRESSED NO HALLUCINATIONS WHILE IN GROUP.
--- NOTE | 2019-08-16 13:40 | NUR ---
Spoke with Araceli at [facility]. Pt. requires onsite Assessment. Requested that Vessel Scrapper Helper speak with family who is Power of Director Compliance Prior to Speaking with patient. Updated Daisha Construction Site Crossing Guard that Nursing would need to Assist Patient during Assessment.
[2019-08-16 20:00] VITALS: BP 118/58
--- NOTE | 2019-08-16 20:34 | NUR ---
EVENING/MUSIC/HYMNS PT RELAXING WATCHING MUSIC VIDEOS. PT REMAINS PLEASANT AND WOULD TALK OFF TOPIC AT TIMES. PT EASILY REDIRECTED WITH NO AGITATIONN OR HALLUCINATIONS EXPRESSED.
--- NOTE | 2019-08-16 23:05 | NUR ---
P--CONFUSION I--TALKED ABOUT HER DAY. DISCUSSED POSSIABLE COPING TECHNIQUES. REORIENTED TO PLACE DATE AND TIME. REVIEWED MEDICATION PRIOR TO GIVING. R--OH HI, OK I AM WATCHING THIS MOVIE. CAN I GO TO BED SOON. P--MONITOR FOR CHANGES IN BEHAVIOR, MOOD AND SAFETY
--- NOTE | 2019-08-17 04:48 | NUR ---
24 HR chart check completed.
--- NOTE | 2019-08-17 06:17 | NUR ---
SLEPT WELL ALL SHIFT
[2019-08-17 07:35] VITALS: BP 121/60
--- NOTE | 2019-08-17 08:15 | NUR ---
Treatment Plan meeting was held with Dr. Pantoja, RN, AT, SPRAY TECHNICIAN-S and Early Head Start Director in attendance. Plan for discharge Thursday or Thursday. Pt. at this time will return to [facility] at discharge. Awaiting Resident Review Onsite Assessment with [facility] to review.
--- NOTE | 2019-08-17 09:40 | NUR ---
Occupational Therapy evaluation completed on 3 with full eval to follow. Precautions include fall risk; bed /chair alarm, impulsive, inconsistant ADL performance,moderate complexity level 23885. Recommend OT per POC and return to half-way w/ OT to meet established goals. Thank you. Rosario Benjamin Otr/l
--- NOTE | 2019-08-17 10:40 | NUR ---
DR. ALVAREZ ON UNIT TO ASSESS PT, UPDATE PROVIDED.
--- NOTE | 2019-08-17 12:19 | NUR ---
Spoke with Nola at [facility]. Provided with Updates and discussed discharge plans. Pt. appeal to Resident Review Denial Court Date set for Aug 19 8:00 a.m. Clinical Updates faxed to [facility] Attn: Nola [phone].
--- NOTE | 2019-08-17 12:39 | NUR ---
AM GROUP PT WAS PRESENT FOR MORNING GROUP THERAPY SITTING IN THE [facility]. PT WAS QUIET FOR THE MOST PART AND EVEN REQUESTED TO COLOR. PT BEGAN REPEATING SOMATIC COMPLAINTS THAT A PEER WAS VOICING NONSTOP,..."MY LEG IS NUMB" ETC. PT EXHIBTED NO AGITATION OR EXPRESSED ANY HALLUCINATIONS WHILE IN GROUP AND ONLY ASKED ABOUT "USAMA" ONE TIME.
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
--- NOTE | 2019-08-17 16:42 | NUR ---
P: PT IRRITABLE WITH STAFF AND PEERS. PT RESTLESS I: PROVIDE EMOTIONAL SUPPORT AND 1:l FOR PT TO VOICE FEELINGS, PROVIDE DIVERSIONAL ACTIVITIES R: PT CONTINUES TO BE IRRITABLE WITH STAFF AND PEERS. PT ALERT TO PERSON AND TIME. PT THINKS SHE IS AT [facility]. PT CONTINUES TO BE IRRITABLE AT TIMES WITH STAFF AND PEERS. PT DID SPEND SOME TIME THIS AFTERNOON COLORING WITH STAFF AND PEER. PT UP TO [facility], THROUGHOUT THE DAY, WILL PROPEL SELF SHORT DISTANCES IN IT. PT CONTINENT OF BOWEL AND BLADDER, EPISODES OF INCONTINENCE NOTED, CARE PROVIDED NEEDED. P: MONTIOR PT BEHAVIORS ON Q15 MIN SAFETY CHECKS, ENCOURAGE MED COMPLIANCE AND PROVIDE MED EDUCATION, ENCOURAGE PT TO PARTICIPATE IN DIVERSIONAL ACTIVITES, PROVIDE EMOTIONAL SUPPORT AND 1:1 FOR PT TO VOICE FEELINGS
[2019-08-17 19:56] VITALS: BP 136/69
--- NOTE | 2019-08-17 20:23 | NUR ---
Patient quietly sitting in merry walker with no c/o discomfort. Respirations easy and regular. Vital signs stable. No overt distress. ANURAG LEE
--- NOTE | 2019-08-17 23:28 | NUR ---
pt exhibited no delusions or hallucinations. compliant with medications and hs snack. pt is only alert to person. requires assistance with medications and meals/liquids. pt cooperative with hs care, requiring +1 assist with transfers and hygiene care. q15 min monitoring per policy for safety.
--- NOTE | 2019-08-18 03:48 | NUR ---
24 HR chart check completed.
[2019-08-18 07:30] VITALS: BP 118/65; BP 134/70
--- NOTE | 2019-08-18 07:40 | NUR ---
OT NOTE Pt was seen this A.M. 1:1 for 20 minute OT session with INVENTORY CHECKER and nursing staff present for observation only. Upon arrival pt was sitting upright in the maryann chair in the dining room. Pt identified by name and and had no complaints at this time. Pt was taken out into the hallway where she completed multiple sit to stand transfers from bed level with Christin and use of hand rail for UE support. Challenged pt's static standing tolerance needed for increased I in self care tasks and functional transfers, pt was able to tolerate aprox 2 minutes at a time before sitting due to fatigue. Pt was then requested to doff and noemí B socks. Pt completed with modA and constant verbal and tactile prompts for attention to task, initation, and sequencing. Pt was left sitting upright in the maryann chair in the dining room under [facility] staff supervision and body alarm activated for safety. Continue with rec D/C plan to return to assisted. LEE Coleman/Ye
--- NOTE | 2019-08-18 09:30 | NUR ---
Treatment Plan meeting was held this a.m. with Dr. Pantoja, RN, AT, NURSE INFORMATICS EDUCATOR-S and Roll Setter in attendance. Plan for discharge Thursday. Pt. will return to [facility] at discharge.
--- NOTE | 2019-08-18 10:52 | NUR ---
DR ALVAREZ ON UNIT TO ASSESS PT, UPDATE PROVIDED.
--- NOTE | 2019-08-18 11:42 | NUR ---
AM GROUP PT WAS PRESENT FOR MORNING GROUP THERAPY SITTING IN THE [facility]. PT ATTEMPTED TO PARTICIPATE BY COLORING BUT KEPT FALLING ASLEEP WITH PENCILS IN HER HAND. PT EXHIBITED NO AGITATION NOR EXPRESSED NO HALLUCINATIONS WHILE IN GROUP.
--- NOTE | 2019-08-18 14:56 | NUR ---
P: PT RESTLESS AND IRRITABLE AT TIMES WITH STAFF THIS MORNING. PT REFUSED LUNCH. I: PROVIDE EMOTIONAL SUPPORT AND 1:1 FOR PT TO VOICE FEELINGS, ENCOURAGE PO INTAKE R: PT CONTINUES TO REFUSE [facility]. PT PLESANT AND COOPERATIVE WITH STAFF THIS AFTERNOON. PT ALERT TO PERSON ONLY, CONFUSION AND SHORT TERM MEMORY DEFICITS NOTED PER PT BASELINE. NO HALLUCINATIONS OR DELUSIONS NOTED. PT DENIES ANY SUICIDAL THOUGHTS. PT UP TO A MERRYWALKER, WILL AMBULATE SHORT DISTANCES WITH STAFF ASSIST. PT CONTINENT OF BOWEL AND BLADDER, EPISODES OF INCONTINENCE NOTED, CARE PROVIDED NEEDED. P: MONITOR PT BEHAVIORS ON Q15 MIN SAFETY CHECKS, ENCOURAGE MED COMPLIANCE AND PROVIDE MED EDUCATION, PROVIDE EMOTIONAL SUPPORT AND 1:1 FOR PT TO VOICE FEELINGS.
--- NOTE | 2019-08-18 15:13 | NUR ---
MILK OG MAG GIVEN PER ORDERS FOR CONSTIPATION. WILL CONTINUE TO MONITOR PT.
--- NOTE | 2019-08-18 15:23 | NUR ---
PHYSICAL THERAPY Physical therapy evaluation completed, 3N. Full details to follow. Moderate complexity determined after chart review/evaluation, 403[address]. PT to work on strength, gait, endurance, transfers, safety. Recommending SNF at discharge. Thank you Melissa Penny, PT, DPT
--- NOTE | 2019-08-18 15:43 | NUR ---
PM GROUP PT DID NOT ATTEND AFTERNOON GROUP THERAPY. PT WAS IN THE HALLWAY AMBULATING SELF IN [employer].
--- NOTE | 2019-08-18 15:57 | NUR ---
Spoke with Pt. Son Jani who has requested a referral to [facility]. Call placed to facility and spoke with Mame Beebe who is the senior microsoft consultant at facility. Pt. has a Zaynab who works at the facility and they currently have a female bed in the secure unit. Faxed Referral to .
[2019-08-18 19:39] VITALS: BP 119/89
--- NOTE | 2019-08-18 20:00 | NUR ---
Patient resting quietly with no c/o discomfort. Respirations easy and regular. Vital signs stable. No overt distress. ANURAG LEE
--- NOTE | 2019-08-19 00:30 | NUR ---
pt exhibited no delusions or hallucinations. compliant with medications and hs snack. pt is only alert to person. requires assistance with medications and meals/liquids. pt cooperative with hs care, requiring +1 assist with transfers and hygiene care. pt uses merry walker as assistive device for ambulation. pt received shower by staff this shift, pt cooperative and calm. q15 min monitoring per policy for safety. pt is now resting quietly in bed at this time. educated consumer studies professor don't fall policy. bed alarm in, bed in lowest position.
--- NOTE | 2019-08-19 05:55 | NUR ---
pt slept past 2129
--- NOTE | 2019-08-19 06:34 | NUR ---
MILK OF MAGNESIA 30CC PO GIVEN PER PRN ORDER FOR CONSTIPATION
[2019-08-19 07:47] VITALS: BP 123/52
--- NOTE | 2019-08-19 07:50 | NUR ---
Patient resting quietly with no c/o discomfort. Respirations easy and regular. Vital signs stable. No overt distress. GIVENS,ED
--- NOTE | 2019-08-19 08:15 | NUR ---
Treatment Plan meeting was held at this time with Dr. Pantoja RN, CLERICAL TRANSCRIBER-S and Automotive Brake Adjuster in attendance. Plan for dishcharge Thursday. Pt. to return to [facility] at discharge.
--- NOTE | 2019-08-19 10:02 | NUR ---
Spoke with Nola at [facility]. Court Date has been Moved to Aug 23 for Appeal to Resident Review Denial. Provided with Updates and Plan to discharge on Thursday. Advised that Son had requested Referral to [facility] and that Referral was faxed Yesterday. No reply from [facility] at this time.
--- NOTE | 2019-08-19 10:04 | NUR ---
Clinical Updates faxed to [facility] Attn: Nola [phone].
--- NOTE | 2019-08-19 10:47 | NUR ---
P- PLEASANTLY CONFUSED. PT STATES SHE FEELS "WEIRD THIS MORNING" BECAUSE SHE STATES "I HAD TO HAVE MOMMY HELP ME CUT UP MY PANCAKES AND TAKE ME TO THE BATHROOM". I- ORIENTATION, MOOD AND BEHAVIOR ASSESSED. ASSESSED PT SI/HI, INTENT OR PLAN. ASSESSED PT FOR S/S HALLUCINATIONS, PARANOIA AND/OR DELUSIONS. MEDICATIONS ADMINISTERED PER PHYSICIAN'S ORDERS. ASSISTANCE WITH ADL CARE PROVIDED NEEDED. ENCOURAGED PT TO ATTEND AND PARTICIPATE IN LEMUS MILIEU GROUPS AND ACTIVITIES. R- PT IS ALERT AND ORIENTED TO PERSON, APPROXIMATE PLACE AND TIME. CONFUSED TO SITUATION. RESPS EASY AND EVEN ON ROOM AIR. PT DENIES FEELING SAD OR DEPRESSED. MOOD APPEARS STABLE THIS MORNING WITH APPROPRIATE AFFECT. SPEECH IS SOFT AND SLOW BUT COHERENT, ABLE TO MAKE NEEDS KNOWN WITHOUT DIFFICULTY. PT DENIES PAIN OR DISCOMFORT. PT STATES SHE FEELS "A LITTLE WEIRD THIS MORNING BECAUSE I HAD TO HAVE MOMMY CUT UP MY PANCAKES AND TAKE ME TO THE BATHROOM".PT DENIES SI/HI, INTENT OR PLAN. PT DENIES HALLUCINATIONS, NO RESPONSE TO INTERNAL STIMULI NOTED. PT IS MEDICATION COMPLIANT THIS AM WITHOUT DIFFICULTY. NO DISTRESS NOTED. NO AGGRESSIVE BEHAVIORS OBSERVED AT THIS TIME. P- PLAN TO CONTINUE CURRENT TREATMENT, CONTINUE TO MONITOR MOOD AND BEHAVIORS, PROVIDE APPROPRIATE REORIENTATION, REDIRECTION AND 1:1 NEEDED. CONTINUE TO ENCOURAGE MEDICATION COMPLIANCE WELL GROUP ATTENDANCE AND PARTICIPATION.
--- NOTE | 2019-08-19 11:00 | NUR ---
ON UNIT TO SEE PT AT THIS TIME. MADE AWARE PT HAS NOT HAD DOCUMENTED BM SINCE 08/14/19. MADE AWARE PT RECIEVED MILK OF MAG YESTERDAY AFTERNOON AND A SECOND DOSE THIS AM WITHOUT EFFECT.
--- NOTE | 2019-08-19 12:20 | NUR ---
PHYSICAL THERAPY Patient seen this pm for therapy visit and was sitting up in activity room w/c following lunch upon therapist arrival. Patient identified by name / as OT assistant professor of chemistry was present for observation only this session. Patient was pleasant this afternoon, voicing no c/o's pain and presented with seated L side lean in w/c. Patient trasnfers sit to stand MOD A and ambulated 15'x 2, wh walker, MIN A, demonstrating "festinating" gait pattern, increased difficulty with wh walker advance and R side gait deviation. Patient needed several v/c's to stand tall and to take BIG steps to improve kati. Patient fatigues quickly and needed seated rest break between gait trials to complete all task. Patient returned to w/c in activity room with body alarm and remained under [facility] staff Supervision. Will continue per POC as tolerated, total treatment time 16 minutes. Jaciel Hawkins, SOFTWARE TOOLS DEVELOPER
--- NOTE | 2019-08-19 12:50 | NUR ---
OT NOTE Pt was seen this P.M. 1:1 for 20 minute OT session with SOLUTION MAKE UP OPERATOR and nursing staff present for observation only. Upon arrival pt was sitting upright in the w/c in the dining room. Pt identified by name and and had no complaints at this time. Pt presented to therapy with L lateral lean which she was unable to self correct, pt's nurse aware of lean. Pt was taken out into the hallway where she completed multiple sit to stand transfers from chair level with modA and use of w/w for UE support. Challenged pt's static standing tolerance needed for increased I in self care tasks and functional transfers, pt was able to tolerate aprox 45 seconds at a time before sitting due to fatigue. Throughout static standing pt presented with severe L lateral lean and retrograde posture that required modA to correct. Attempted to have pt complete LB dressing with her socks and pt was unable to follow commands being given. Pt was then taken into the bathroom where she stood sink side while washing her hands with modA to correct retrograde posture and L lateral lean. Pt was left sitting upright in the dining room in her w/c with body alarm activated for safety and under [facility] staff supervision. Continue with rec D/C [facility]. LEE Coleman/Ye
--- NOTE | 2019-08-19 14:05 | NUR ---
Patient was pleasantly confused while speaking with this staff writer this AM. No inappropriate behaviors were noted in pt.
--- NOTE | 2019-08-19 14:15 | NUR ---
PT SITTING AT DINING ROOM TABLE WATCHING TV WITH FEMALE PEER WHEN THIS RN SITTING IN THE SAME ROOM HEARD PT'S BEVERAGE HIT THE FLOOR. THIS NURSE ATTEMPTED TO ASSIST PT BY PICKING UP BEVERAGE, PT IRRITABLE AT THIS TIME, STATED "I THREW IT DOWN THERE ON PURPOSE AND IF YOU DON'T GET AWAY FROM ME I'M GONNA KNOCK YOU DOWN TOO!" THIS NURSE ATTEMPTED THERAPEUTIC COMMUNICATION WITH PT, PT UNRECEPTIVE. THIS NURSE ATTEMPTED TO REPOSITION PT'S WHEELCHAIR SO THAT THIS RN COULD CLEAN UP THE SPILL. PT BEGAN SWATTING AND HITTING THIS NURSE AND 2ND RN. PT VERBALLY THREATENING STAFF, STATED TO 2ND RN "I'LL KNOCK YOU CLEAR INTO THE HALLWAY IF YOU DON'T GET AWAY FROM ME RIGHT NOW". PT LEFT ALONE TO CALM WITH CLOSE STAFF SUPERVISION. PT ATTEMPTING TO HIGH [employer]CHO[employer] FOREIGN LANGUAGE TEACHER UNSEEN OBJECTS OFF THE FLOOR, UNSAFELY LEANING OUT OF WHEELCHAIR. PT BECOMES AGITATED, THREATENING AND PHYSICALLY COMBATIVE WHEN STAFF ATTEMPTS TO INTERVENE TO ENSURE PT'S SAFETY. OFFERED PT FOOD, FLUIDS AND TOILETING ALL WHICH PT REFUSED. PT ASSISTED TO RECLINED POSITION IN CHAIR, PLACED IN VIEW OF TV WITH WARM BLANKET FOR CALMING. CLOSE STAFF SUPERVISION CONTINUES.
--- NOTE | 2019-08-19 15:22 | NUR ---
OCCUPATIONAL THERAPY CO-SIGN I approve of the Occupational Therapy notes written above. SOSA HOLLOWAY OTR/Ye
--- NOTE | 2019-08-19 16:25 | NUR ---
PT RESTING QUIETLY RECLINED IN CHAIR AT THIS TIME. NO DISTRESS NOTED. NO FURTHER BEHAVIORS AT THIS TIME.
[2019-08-19 19:48] VITALS: BP 111/52
--- NOTE | 2019-08-19 22:24 | NUR ---
Patient alert to self only. Mood slightly irritable. No hallucinations noted at this time. Patient compliant with HS medications without any difficulty but with assistance. Provided 1:1 for emotional support. Redirected/reoriented when needed. Patient transferred with 1 assist to bed from chair. Plan to continue to encourage medication compliance and continue providing emotional support. Redirect/reorient when needed/appropriate. Q 15 minute safety checks continued and maintained. See [facility] flowsheet for further documentation.
--- NOTE | 2019-08-20 00:11 | NUR ---
24 HR chart check completed.
--- NOTE | 2019-08-20 05:30 | NUR ---
Patient slept approx. 8 hours throughout shift. Q 15 minute safety checks continued and maintained.
--- NOTE | 2019-08-20 07:44 | NUR ---
PT AWAKE AND ALERT, PLEASANT, RESPS EASY AND EVEN ON ROOM AIR. SEATED AT DINING ROOM TABLE WITH PEERS AT THIS TIME AWAITING BREAKFAST. NO DISTRESS NOTED.
[2019-08-20 07:46] VITALS: BP 112/67
--- NOTE | 2019-08-20 10:43 | NUR ---
SONAM MAJOR LEAGUE BASEBALL PLAYER ON UNIT TO SEE PT AT THIS TIME, UPDATE GIVEN.
--- NOTE | 2019-08-20 11:00 | NUR ---
ON UNIT TO SEE PT AT THIS TIME, UPDATE GIVEN, MADE AWARE MOM HAS BEEN INEFFECTIVE PT WITH NO DOCUMENTED BM SINCE 08/14/19.
--- NOTE | 2019-08-20 11:51 | NUR ---
AM GROUP/MUSIC/EXRCISE/BRAIN GAMES PT ATTENDED AND PARTICIPATED TO BEST OF ABILITY. PT PLEASANT BUT HAD TROUBLE STAYING AWAKE. PT WAKING INTERMITTENTLY SMILING AND PARTICIPATING TO BEST OF ABILITY. PT WILL CONTINUE TO ATTEND AND PARTICIPATE TO BEST OF PT ABILITY.
--- NOTE | 2019-08-20 13:08 | NUR ---
P- PLEASANTLY CONFUSED THIS MORNING. NO AGGRESSIVE BEHAVIORS OR IRRITABILITY DEMONSTRATED OF THIS TIME IN THE SHIFT. PT STATES SHE IS FEELING GOOD BUT IS A LITTLE TIRED TODAY. PT NAPPING INTERMITTENTLY. EASILY AROUSABLE VIA VERBAL/TACTILE STIMULI. I- ORIENTATION, MOOD AND BEHAVIOR ASSESSED. ASSESSED PT FOR SI/HI, INTENT OR PLAN. ASSESSED PT FOR S/S HALLUCINATIONS, PARANOIA AND/OR DELUSIONS. MEDICATIONS ADMINISTERED PER PHYSICIAN'S ORDERS. ASSISTANCE WITH ADL CARE PROVIDED NEEDED. ENCOURAGED PT TO ATTEND AND PARTICIPATE IN LEMUS MILIEU GROUPS AND ACTIVITIES. R- PT IS ALERT AND ORIENTED TO PERSON, APPROXIMATE PLACE AND TIME. PT STATES SHE IS IN THE HOSPITAL BUT IDENTIFIED BEING AT "[facility]". EASILY REORIENTED. PLEASANTLY CONFUSED AT TIMES. ST/LT MEMORY GAPS NOTED. RESPS EASY AND EVEN ON ROOM AIR. MOOD STABLE OF THIS TIME IN THE SHIFT, NO IRRITABILITY OR AGGRESSIVE BEHAVIORS DISPLAYED OF THIS TIME. AFFECT APPROPRIATE. SPEECH IS SOFT AND SLOW BUT COHERENT. PT IS ABLE TO MAKE NEEDS KNOWN WITHOUT DIFFICULTY. PT DENIES SI/HI, INTENT OR PLAN. PT DENIES HALLUCINATIONS, NO RESPONSE TO INTERNAL STIMULI NOTED. NO PARANOIA OR DELUSIONS NOTED. PT CALM AND COOPERATIVE. PT DENIES PAIN/DISCOMFORT. MEIDCATION COMPLIANT. NO DISTRESS NOTED. P- PLAN TO CONTINUE CURRENT TREATMENT, CONTINUE TO MONITOR MOOD AND BEHAVIORS, PROVIDE APPROPRIATE REORIENTATION, REDIRECTION AND 1:1 NEEDED. CONTINUE TO ENCOURAGE MEDICATION COMPLIANCE WELL GROUP ATTENDANCE AND PARTICIPATION.
--- NOTE | 2019-08-20 15:41 | NUR ---
PM GROUP/CRAFTS/LEISURE PT IN ATTENDANCE BUT SLEEPING UNTIL MHW WOKE PT TO USE THE RESTROOM. PT AWAKE REMAINDER OF GROUP AND PLEASANT OBSERVING GROUP AND SINGING. PT CHOSE NOT TO PARTICIPATE IN ACTIVITY AND DID NOT DISPLAY ANY AGITATIN OR EXPRESS HALLUCINATIONS. PT WILL CONTINUE TO ATTEND AND BE ENCOURAGED TO PARTICIPATE TO BEST OF PT ABILITY.
--- NOTE | 2019-08-20 18:53 | NUR ---
DURING DINNER PT EXHIBITING INCREASED CONFUSION, CHANTING AND SINGING, REFUSING TO EAT DINNER, PT STATES "THAT'S NOT MY DINNER. NOT MY DINNER". PT BEGAN YELLING OUT FOR HER SON, PT TAKEN TO [facility] FOR 1:1, PT TEARFUL AND STATING "MY UNCLE , HE'S , HE'S GONE". THIS NURSE ATTEMPTED TO REORIENT WITHOUT SUCCESS, PT THEN STATING "MY GRANDMOTHER IS ILL. SHE'S ILL AND YOU'RE ILL AND YOUR DAD IS UP THERE. THE GUARD IS OUT THE DOOR, THE GUARD IS OUT THE DOOR." PT VISIBLY ANXIOUS, THIS NURSE ENCOURAGED PT TO UTILIZE DEEP BREATHING TECHNIQUES FOR CALMING.
[2019-08-20 19:45] VITALS: BP 133/86
--- NOTE | 2019-08-20 19:54 | NUR ---
24 HR chart check completed.
--- NOTE | 2019-08-20 21:17 | NUR ---
P-CONFUSION I-PROVIDE EMOTIONAL SUPPORT, ASSESS ORIENTATION, ADMINISTER MEDS, MONITOR SLEEP R-PT HAS BEEN SITTING IN A ANAT CHAIR WITH TRAY OFF . ALERT TO PERSON, YEAR & PRESIDENT BUT IS NOTED TO HAVE MEMORY DEFICITS. STATED THAT SHE IS IN [place]. RECEPTIVE TO REORIENTATION. PLEASANTLY CONFUSED AT TIMES. NO AGGRESSION OR AGITATION. ABLE TO MAKE NEEDS KNOWN. COMPLIANT WITH MEDICATIONS. REQUIRES 2 STAFF ASSISTS. GIVEN A SHOWER THIS EVENING. ATE SNACK. P-CONTINUE TO MONITOR & PROVIDE PHYSICAL & EMOTIONAL SUPPORT NEEDED.
--- NOTE | 2019-08-21 04:11 | NUR ---
PT HAS BEEN SLEEPING SINCE 2199. AWAKE & ATTEMPTING TO GET OUT OF BED. REQUIRED 3 ASSISTS PT BECAME AGGRESSIVE WITH HANDS ON CARE. ATTEMPTING TO SWING & BITE AT STAFF SEVERAL TIMES DESPITE REDIRECTION. ASSISTED TO A ANAT CHAIR & MOVED NEAR NURSES STATION.
[2019-08-21 07:45] VITALS: BP 131/76
--- NOTE | 2019-08-21 09:08 | NUR ---
DR ALVAREZ ON UNIT TO SEE PATIENT
--- NOTE | 2019-08-21 10:14 | NUR ---
P: PT HALLUCINATING, STAFF OBSERVED PT TO BE SPEAKING TO UNSEEN OTHERS. PT RESTLESS, MOOD IS LABILE. I: PROVIDE EMOTIONAL SUPPORT AND 1:1 FOR PT TO VOICE FEELINGS, ENCOURAGE MED COMPLIANCE AND PROVIDE MED EDUCATION, PRESENT REALITY AND RE-ORIENT NEEDED. OFFER DIVERSIONAL ACTIVITES AND ENCOURAGE GROUP PARTICIPATION AND SOCIALIZATION R: PT UNRECEPTIVE TO PRESENTATION OF REALITY, PT CONTINUES TO SPEAK TO UNSEEN OTHERS. PT MOOD REMAINS LABILE. PT ALERT TO PERSON ONLY, CONFUSION AND SHORT TERM MEMORY DEFICITS NOTED PER PT BASELINE. PT MED COMPLIANT WITHOUT DIFFICULTY, UNABLE TO PROVIDE MED EDUCATION D/T CONFUSION. PT UP TO A GERICHAIR, REQUIRES 1-2 STAFF ASSIST FOR TRANSFERS AND CARE. PT CONTINENT OF BOWEL AND BLADDER, EPISODES OF INCONTINENCE NOTED, CARE PROVIDED NEEDED. P: MONITOR PT BEHAVIORS ON Q15 MIN SAFETY CHECKS, ENCOURAGE MED COMPLIANCE AND PROVIDE MED EDUCATION, ENCOURAGE GROUP PARTICIPATION AND SOCIALIZATION, CONTINUE TO PRESENT REALITY AND PROVIDE RE-ORIENTATION NEEDED, PROVIDE EMOTIONAL SUPPORT AND 1:1 FOR PT TO VOICE FEELINGS.
[2019-08-21 19:51] VITALS: BP 128/78
--- NOTE | 2019-08-21 21:29 | NUR ---
P--AGGITATED, CONFUSED, ST/LT MEMORY GAPS I--TRIED TO GET CLIENT TO TALK ABOUT HER DAY AND OPEN HER EYES. DISCUSSED HER MEDICATION PRIOR TO GIVING. EMOTIONAL SUPPORT PROVIDED. MEDS CRUSHED IN PUDDING R-- AGGITATED. WON'T OPEN EYES, SWATS AT HOC. LEAVE ME ALONE, I DON'T WANT PUDDING. FINE GIVE IT TO ME. PO FLUIDS ALSO PROVIDED P--MONITOR FOR CHANGES IN BEHAVIOR/MOOD. MONITOR FOR SAFETY Q 15 MINUTES AND PRN. EMOTIONAL SUPPORT AVAILABLE IF NEEDED
--- NOTE | 2019-08-22 05:17 | NUR ---
PT SLEPT 8 HOURS
--- NOTE | 2019-08-22 05:19 | NUR ---
24 HR chart check completed.
[2019-08-22 07:52] VITALS: BP 135/73
--- NOTE | 2019-08-22 08:50 | NUR ---
OT NOTE Pt was seen this A.M. 1:1 for 15 minute OT session with HAIR BALER and nursing staff present for observation only. Upon arrival pt was sitting upright in the maryann chair in the dining room asleep. Pt was easily aroused and was identified by name and and had no complaints at this time. Pt was taken out into the hallway where she completed multiple sit to stand transfers from chair level with Christin and use of hand rail for UE support. Challenged pt's static standing tolerance needed for increased I in self care tasks and functional transfers. Pt was able to tolerate aprox 20-30 seconds at a time before sitting due to fatigue. Throughout standing pt required Christin to correct L lateral lean she presented with. Pt was left sitting semi reclined in the maryann chair in the dining room under [facility] staff supervision and body alarm activated for safety. Continue with rec D/C plan to return to retirement. LEE Coleman/Ye
--- NOTE | 2019-08-22 09:16 | NUR ---
PHYSICAL THERAPY Patient presented to therapy in maryann-chair in recumbant position with chair alarm attached ot patient and patient report of no complaints. Patient appears very sleepy. Patient was identified by name and on wristband. Patient gives informed consent for treatment. Patient performed sit to stand from maryann-chair with CGA X 1. Patient required verbal cues and visual demonstrations for showing her how to reach for the railing in hallway. Patient stood for < 30 seconds each standing tolerance and required MIN A X 1 to correct L LATERAL LEAN that was constant in standing. Patient was unable ot ambulate becuase of the L LATERAL LEAN. Patient is a fall risk! Patient was left in reclined position in the maryann-chair with chair alarm attached and U staff present in the activity room. Patient was 1:1 with this TUG CAPTAIN for 17 minutes total. HATTIE BIRCH TUG CAPTAIN
--- NOTE | 2019-08-22 09:30 | NUR ---
ON UNIT TO SEE PT AT THIS TIME, AWARE OF NO DOCUMENTED BM. STATES HE WILL REVIEW ORDERS.
--- NOTE | 2019-08-22 10:31 | NUR ---
Spoke with Nola At [facility], Advised of plans to discharge Thursday/Thu. Pt. has Court Tommor[place] at 8:00 a.m. and Thursday would be preferable discharge day due to Court. Resident Review is Complete. Nola was unable to Print and advised that she would return call shortly.
--- NOTE | 2019-08-22 10:37 | NUR ---
Treatment Plan meeting was held this a.m. with Dr. Pantoja, RN, AT, MANAGER BASKETBALL-S and Voltmeter Operator. Plan for discharge /Thu. Pt. is to return to [facility] at discharge.
--- NOTE | 2019-08-22 11:39 | NUR ---
AM GROUP PT WAS PRESENT FOR MORNING GROUP THERAPY RECLINED IN A ANAT CHAIR SLEEPING. PT AWOKE TO USE THE BATHROOM AND RETURNED TO SIT AND WATCH TV. PT WAS QUIET AND CONTENT. PT EXHIBITED NO AGITATION OR AGGRESSION AND EXPRESSED NO HALLUCINATIONS WHILE IN GROUP
--- NOTE | 2019-08-22 15:39 | NUR ---
PM GROUP PT WAS PRESENT FOR AFTERNOON GROUP THERAPY BUT DID NOT PARTICIPATE. PT SLEPT MOST OF THE TIME IN A ANAT CHAIR.
--- NOTE | 2019-08-22 16:18 | NUR ---
P- STABLE MOOD, APPROPRIATE AFFECT. NO AGGRESSIVE OR COMBATIVE BEHAVIORS, NAPPING INTERMITTENTLY, EASILY AROUSABLE, POSITIVE INTERACTIONS NOTED WITH BOTH STAFF AND PEERS. NO HALLUCINATIONS NOTED. MED COMPLIANT WITHOUT DIFFICULTY. I- ORIENTATION, MOOD AND BEHAVIORS ASSESSED. ASSESSED PT FOR SI/HI, INTENT OR PLAN. ASSESSED PT FOR S/S HALLUCINATIONS, PARANOIA AND/OR DELUSIONS. MEDICATIONS ADMINISTERED PER PHYSICIAN'S ORDERS. ASSISTANCE WITH ADL CARE PROVIDED NEEDED. ENCOURAGED PT TO ATTEND AND PARTICIPATE IN LEMUS MILIEU GROUPS AND ACTIVITIES. R- PT IS ALERT AND ORIENTED TO PERSON, APPROXIMATE PLACE AND TIME. ST/LT MEMORY GAPS NOTED. RESPS EASY AND EVEN ON ROOM AIR. MOOD IS STABLE THIS SHIFT WITH APPROPRIATE AFFECT. SPEECH IS SOFT, COHERENT, ABLE TO MAKE NEEDS KNOWN WITHOUT DIFFICULTY. PT DENIES SI/HI, INTENT OR PLAN. PT DENIES HALLUCINATIONS, NO RESPONSE TO INTERNAL STIMULI NOTED. NO PARANOIA OR DELUSIONS NOTED. PT IS MED COMPLIANT WITHOUT DIFFICULTY. POSITIVE INTERACTIONS NOTED WITH STAFF AND PEERS. NO AGGRESSIVE BEHAVIORS DISPLAYED. NO DISTRESS NOTED. P- PLAN TO CONTINUE CURRENT TREATMENT, CONTINUE TO MONITOR MOOD AND BEHAVIORS, PROVIDE APPROPRIATE REORIENTATION, REDIRECTION AND 1:1 NEEDED. CONTINUE TO ENCOURAGE MEDICATION COMPLIANCE WELL GROUP ATTENDANCE AND PARTICIPATION.
--- NOTE | 2019-08-22 17:31 | NUR ---
PT TOILETED, PT COMPLAINING HER "BOTANICALS" ITCH. SKIN ASSESSED WITH NO FINDINGS TO BREONNA-AREA. PT WAS INCONTINENT OF URINE, CLOTHES CHANGED, BREONNA-CARE PROVIDED AND BARRIER CREAM APPLIED. PT APPEARS TO BE RESPONDING TO POSSIBLE VISUAL STIMULI, HOLDING HANDS OUT STRAIGHT AND "PATTING" UNSEEN OBJECT. PT RETURNED TO DINING ROOM WHERE SHE BEGAN CHANTING "MOMMY, MOMMY, MOMMY" WHEN THIS NURSE INTERVENED PT STATES "MY EYES BURN, TAKE MY GLASSES OFF, MOMMY, MOMMY, MOMMY". PT CONTINUES TO CHANT DESPITE ATTEMPTS TO REDIRECT/CALM. PT TAKEN TO QUIET ROOM AT THIS TIME FOR LOW STIMULATION, WILL CONT TO MONITOR FOR EFFECTIVENESS.
--- NOTE | 2019-08-22 18:35 | NUR ---
ATTMEPTED TO ADMINISTER PO LACTULOSE AT THIS TIME, PT TOOK A FEW SIPS AND SWISHED IT AROUND IN HER MOUTH FOR A FEW MINUTES BEFORE SWALLOWING, REFUSED TO DRINK ANY MORE AT THIS TIME. PT WAS GIVEN 240CC PRUNE JUICE EALIER IN THE DAY. +BSX4. REMAINING LACTULOSE GIVEN TO TOUCHER UP RN TO ATTMEPT TO ADMINISTER THE REST.
[2019-08-22 19:50] VITALS: BP 136/68
--- NOTE | 2019-08-22 21:38 | NUR ---
Patient alert to self only with confusion noted. Mood very irritable. No hallucinations noted at this time. Patient compliant with HS medications without any difficulty but with assistance much encouragement. Provided 1:1 for emotional support. Redirected/reoriented when needed. Plan to continue to encourage medication compliance and continue providing emotional support. Redirect/reorient when needed/appropriate. Q 15 minute safety checks continued and maintained. See [facility] flowsheet for further documentation.
--- NOTE | 2019-08-23 00:16 | NUR ---
24 HR chart check completed.
--- NOTE | 2019-08-23 05:45 | NUR ---
Patient slept approx. 7 hours throughout shift. Q 15 minute safety checks continued and maintained.
--- NOTE | 2019-08-23 07:17 | NUR ---
OT NOTE Pt was seen this A.M. 1:1 for 17 minute OT session with ROENTGENOLOGIST and nursing staff present for observation only. Upon arrival pt was sitting upright in the maryann chair in the dining room. Pt identified by name and and had no complaints at this time. Pt was taken out into the hallway where she completed multiple sit to stand transfers from chair level with Christin X 2 and use of hand rail for UE support. While standing pt required modA to correct retrograde posture and L lateral lean. Challenged pt's static standing tolerance needed for increased I in self care tasks and functional transfers, pt was able to tolerate aprox 30-45 seconds before sitting due to fatigue. Pt was left sitting upright in the maryann chair in the dining room under U staff supervision and body alarm activated for safety. Continue with rec D/C plan to return to longterm. LEE Ambrose/Ye
--- NOTE | 2019-08-23 08:15 | NUR ---
Treatment Plan meeting was held with Dr. Pantoja RN. AT and Floor Layer Apprentice. Plan for discharge Thursday. Pt. to return to [facility].
--- NOTE | 2019-08-23 08:22 | NUR ---
PHYSICAL THERAPY Patient seen this am for therapy visit and was sitting in hallway Celine chair semi reclined upon therapist arrival to [facility]. Patient identified by name / and was resting comfortably, voicing no new c/o's. Patient was pretty tired this morning and needed multiple v/c's to focus on task including several request to open eyes. Patient performed sit to stand transfers at rail in hallway, MIN A, tolerting < 1 minute static stand each trial, CGA to maintain upright position, but with L side lean. Patient unable to correct L side lean, even with therapist assist as she would just "prop" herself up on therapist for support. Patient returned to Celine chair with increased fatigue and remained semi reclined with body alarm under [facility] staff Supervision. Will continue per POC as tolerated, total treatment time 14 minutes. Jaciel Hawkins, COMMUNICATIONS REPRESENTATIVE
[2019-08-23 08:25] VITALS: BP 110/61
--- NOTE | 2019-08-23 10:24 | NUR ---
P-CONFUSION, IRRITABLE, HALLUCINATIONS I-REDIRECTION WITH 1:1 THERAPEUTIC INTERVENTIONS AND PRESENT REALITY. EDUCATE AND ENCOURAGE MEDICATION COMPLIANCE R-PATIENT IN DINING AREA WITH INAPPROPRIATE LAUGHTER AT TIMES WHEN HALLUCINATING ABOUT A MAN NAMED SURINDER. PATIENT STATING "LOOK AT HIM, HE IS THE BEST LOOKING MAN I HAVE EVER SEEN. PATIENT MEDICATION COMPLIANT. PATIENT WITH SHORT TERM AND COMPLAINT SUPERVISOR MEMORY DEFICITS. PATIENT WITH NO SUICIDAL OR HOMICIDAL IDEATIONS. PATIENT WITH NO DELUSIONS. P-CONTINUE TO ENCOURAGE MEDICATION COMPLIANCE, CONTINUE TO PRESENT REALITY, ENCOURAGE GROUP THERAPY WHILE AWAKE
--- NOTE | 2019-08-23 11:52 | NUR ---
AM GROUP PT WAS PRESENT FOR MORNING GROUP THERAPY SLEEPING RECLINED IN A ANAT CHAIR. PT WOKE HALF WAY THRU GROUP AND WAS TOILETED. UPON RETURN PT WAS OFFERED ACTIVITIES BUT IS UNABLE TO PARTICIPATE AT THIS TIME DUE TO COGNITIVE IMPAIRMENT. PT WAS PREOCCUPIED WITH "FINDING MY FRIEND SO THAT WE CAN GO" AND "I HAVE TO FIND MY GLASSES" PT WAS DISTRACTABLE FOR SHORT PERIODS. PT EXPRESSED NO HALLUCINATIONS WHILE IN GROUP
--- NOTE | 2019-08-23 12:19 | NUR ---
DR RICHEY AND TEAM ON UNIT TO SEE PATIENT
--- NOTE | 2019-08-23 13:39 | NUR ---
Spoke with Ryann Mccrary at [facility]. Per Pt. Court Hearing this a.m. for Resident Review. Pt. is able to return to Nursing facility and [facility] will take Patient once stable. Ryann is concerned that after reading the updates on Thursday that Resident was not ready for discharge. Ryann has requested Discharge later in the week and updates faxed tommorow for review. Copy of Treatment Plan and Safety Plan faxed to Facility per Request of [facility] Recommendations for Safety Plan to follow at Facility.
--- NOTE | 2019-08-23 15:21 | NUR ---
Shift chart check completed.
--- NOTE | 2019-08-23 15:38 | NUR ---
PM GROUP PT WAS PRESENT FOR AFTERNOON GROUP THERAPY RECLINED IN A ANAT CHAIR SLEEPING. PT WOKE ONCE AND BECAME AGITATED STATING,"THESE AREN'T MY GLASSES" PT CLAMED SELF AND FELL BACK TO SLEEP.
[2019-08-23 19:34] VITALS: BP 108/70
--- NOTE | 2019-08-23 21:08 | NUR ---
Patient alert to self only with confusion noted. Mood moderately irritable. No hallucinations noted at this time. Patient compliant with HS medications without any difficulty but with assistance and much encouragement. Provided 1:1 for emotional support. Redirected/reoriented when needed. Plan to continue to encourage medication compliance and continue providing emotional support. Redirect/reorient when needed/appropriate. Q 15 minute safety checks continued and maintained. See [facility] flowsheet for further documentation.
--- NOTE | 2019-08-24 00:14 | NUR ---
24 HR chart check completed.
--- NOTE | 2019-08-24 05:39 | NUR ---
Patient slept approx. 8 hours throughout shift with 1 awakening. Q 15 minute safety checks continued and maintained.
--- NOTE | 2019-08-24 07:35 | NUR ---
PHYSICAL THERAPY Patient seen this am for therapy visit and was sitting in Quiet room Celine chair upon therapist arrival. Patient identified by name / and presented with increased Lethargic behaviour. OT medical practice assistant was present for observation only this morning as patient needed multiple v/c's to complete all therapy task this session. Patient transfers sit to stand Mod A x 2, tolerating < 20 seconds static stand prior to impulsive sitting down without warning. Patient performed additional sit to stand MOD/CUT OFF SAW OPERATOR, ambulating 5'x 1, MAX/CUT OFF SAW OPERATOR, demonstrating increased difficulty with B foot advance, secondary to increased fear of falling. Patient returned to Celine chair in activity room and remained with body alarm / lap tray under [facility] staff Supervision. Will continue per POC as tolerated, total treatment time 13 minutes. Jaciel Hawkins, SUPERINTENDENT SYSTEM OPERATION
--- NOTE | 2019-08-24 07:42 | NUR ---
OT NOTE Pt was seen this A.M. 1:1 for 12 minute OT session with TECHNICAL ADMINISTRATOR and nursing staff present for observation only. Upon arrival pt was sitting upright in the quiet room in the maryann chair. Pt presented with increased lethargic behaviors as indicated by requiring multiple verbal and tactile prompts to arouse, to keep her eyes open, and to follow commands. Pt completed multiple sit to stand transfers from chair level with modA X 2 and use of w/w for UE support. Challenged pt's static standing tolerance needed for increased I in self care tasks and functional transfers. Pt was able to tolerate aprox 20 seconds at a time before sitting due to being unable to follow commands, not opening her eyes, and presenting with L lateral lean and retrograde posture that required maxA to correct. Pt was left sitting upright in the dining room un her maryann chair with lap tray in place, body alarm activated for safety, and under [facility] staff supervision. Continue with rec D/C plan to return to halfway. LEE Coleman/Ye
[2019-08-24 07:50] VITALS: BP 128/51
--- NOTE | 2019-08-24 12:44 | NUR ---
AM GROUP NO AM GROUP DUE TO NEW PT ASSESSMENTS
--- NOTE | 2019-08-24 15:35 | NUR ---
PM GROUP PT WAS PRESENT FOR AFTERNOON GROUP THERAPY BUT IS UNABLE TO PARTICIPATE DUE TO COGNITIVE IMPAIRMENT. PT WAS SEATED IN A ANAT CHAIR SLEEPING. PT WAS AWAKE AND AGITATED, ATTEMPTING TO KICK ME I WALKED BY. PT WOULD NOT RESPOND TO QUESTIONS AND FELL BACK TO SLEEP.
--- NOTE | 2019-08-24 16:03 | NUR ---
PT HAS HAD NO NOTED IRRITABILITY. PT IS INTERMITTENTLY NAPPING T/O SHIFT. PT ASSESSED FOR ORIENTATION LEVEL. ADMINISTERED MEDICATIONS PER ORDER. PT IS ORIENTED TO PERSON, UNABLE TO ACCURATELY IDENTIFY PLACE OR TIME; HOWEVER, DOES STATE SHE IS IN A HOSPITAL. PT HAS FLIGHT OF IDEAS, QUICKLY CHANGING TOPIC FROM EX-, TO SON [place], TO [place]. PT PRESENTS WITH ST/LT MEMORY DEFICITS AND OCCASIONAL INAPPROPRIATE LAUGHTER. MEDICATION COMPLIANT WITHOUT DIFFICULTY. WILL CONTINUE TO PROVIDE REORIENTATION, REDIRECTION AND 1:1 FOR EMOTIONAL SUPPORT. WILL CONTINUE TO ADMINISTER MEDICATIONS PER ORDER. WILL CONTINUE Q15 MIN MONITORING PER POLICY.
[2019-08-24 19:44] VITALS: BP 110/51
--- NOTE | 2019-08-25 01:47 | NUR ---
READY FOR DISCHARGE. NO ISSUES THIS SHIFT. INTERACTIVE AND MEDICATION COMPLIANT. ATE WELL FOR SNACK
--- NOTE | 2019-08-25 04:45 | NUR ---
24 HR chart check completed.
--- NOTE | 2019-08-25 06:37 | NUR ---
SLEPT 5 HOURS INTERUPTED
--- NOTE | 2019-08-25 07:10 | NUR ---
PHYSICAL THERAPY Patient was sitting semi reclined in activity room Celine chair upon therapist arrival and unable to arouse by both verbal / tactile stimuli. Patient not appropriate for therapy at this time. Will continue per POC as able. Jaciel Hawkins, 21 DEALER
--- NOTE | 2019-08-25 07:15 | NUR ---
OT NOTE Attempted to see pt this A.M. for OT session and upon arrival pt was sitting upright in the maryann chair in the dining room asleep. Pt was identified by name and on wristband; however, pt was unable to arouse to verbal or tactile stimuli. Will check back at a later time/date and continue with POC as able. LEE Coleman/Ye
[2019-08-25 07:47] VITALS: BP 120/52
--- NOTE | 2019-08-25 08:15 | NUR ---
Treatment Plan meeting was held with Dr. Pantoja, RN, AT, GRANITE POLISHER MACHINE-S and Customs Agent. Plan for discharge today. Pt. will return to [facility] at discharge. Transportation has been arranged with [facility] to transport with black pickler time 1:00 p.m.
--- NOTE | 2019-08-25 11:40 | NUR ---
AM GROUP NO AM GROUP WAS CONDUCTED DUE TO NURSING STUDENTS BEING PRESENT.
[2019-08-25] MEDS ORDERED: DULOXETINE HCL30 MG PO (12:50)
[2019-08-25] MEDS ORDERED: LORAZEPAM0.5 MG PO (12:50)
[2019-08-25] MEDS ORDERED: DULOXETINE HCL60 MG PO (12:50)
[2019-08-25] MEDS ORDERED: MEMANTINE HCL10 MG PO (12:50)
[2019-08-25] MEDS ORDERED: EXELON13.3 MG/21 T (12:50)
[2019-08-25] MEDS ORDERED: LACTULOSE20 GM/30 M PO (12:50)
--- NOTE | 2019-08-25 13:50 | NUR ---
PHYSICAL THERAPY Patient seen this pm for therapy visit and was semi reclined in Quiet room Celine chair upon therapist arrival. Patient identified by name / and had just receieved an Ativan secondary to several physical outburst towards female staff. Several [facility] staff members were present for observation only this afternoon as patient was mostly calm this session and able to follow simple commands in performing seated B LE therex, all planes, 2 x 10 reps each to increase LE strength. Patient needed several v/c's to remain focus on task and remained in Celine chair with body alarm, lap tray and under [facility] staff Supervision. Will continue per POC as tolerated, total treatment time 16 minutes. Jaciel Hawkins, SOCIAL MEDIA SENIOR ASSOCIATE
--- NOTE | 2019-08-25 14:52 | NUR ---
PT OFF UNIT AT THIS TIME VIA CART, [facility] X 2 ATTENDANTS PRESENT, SECURITY PRESENT. ALL BELONGINGS AND PAPERWORK FOR FACILITY SENT WITH PT. PT SMILING, STATING "SEE YA!".
--- NOTE | 2019-08-25 14:56 | NUR ---
NURSE TO NURSE REPORT GIVEN TO [facility]. PT UNABLE TO TAKE 1400 ATIVAN PO, PER ARMATURE CONNECTOR, OK TO GIVE IM.
== END 2019-08-25 14:52 | DRG 885 ==
LOC: 3N
PROVIDERS: ADMIT Psychiatry & Neurology Psychiatry
DX: F33.3 Major depressive disorder, recurrent, severe with psychotic symptoms (principal); F41.9 Anxiety disorder, unspecified; I10 Essential (primary) hypertension; E03.9 Hypothyroidism, unspecified; E55.9 Vitamin D deficiency, unspecified; E78.5 Hyperlipidemia, unspecified; E53.8 Deficiency of other specified B group vitamins; G30.9 Alzheimer's disease, unspecified; F02.80 Dementia in other diseases classified elsewhere, unspecified severity, without behavioral disturbance, psychotic disturbance, mood disturbance, and anxiety; K59.00 Constipation, unspecified; E66.9 Obesity, unspecified; Z88.0 Allergy status to penicillin; Z88.5 Allergy status to narcotic agent; Z88.8 Allergy status to other drugs, medicaments and biological substances; Z91.041 Radiographic dye allergy status; Z68.28 Body mass index [BMI] 28.0-28.9, adult

== ENCOUNTER 2022-03-10 18:24 | Emergency (ER) | payer MEDICARE, MEDICAID ==
[~2022-03-10 18:24] MED LIST changes: +DULOXETINE HCL60 MG PO; +EXELON13.3 MG/21 T; +LACTULOSE20 GM/30 M PO; +LORAZEPAM0.5 MG PO; +MEMANTINE HCL10 MG PO; +RISPERDAL1 M1 PO
[2022-03-10 19:16] LABS: BASO % 0.3 % (0.0-1.0); EOS # 0.1 10*3/uL (0.0-0.4); EOS % 1.1 % (1.0-4.0); HEMATOCRIT 44.3 % (37.0-47.0); LYMPH # 1.4 10*3/uL (1.3-4.4); LYMPH % 11.3 % (27.0-41.0); MEAN CELL VOLUME 94.9 fl (81.0-99.0); MEAN CORPUSCULAR HGB 30.4 pg (27.0-31.0); MEAN CORPUSCULAR HGB CONC 32.1 g/dl (33.0-37.0); MEAN PLATELET VOLUME 10.8 fl (9.6-12.3); MONO # 0.7 10*3/uL (0.1-1.0); MONO % 5.3 % (3.0-9.0); NEUT # 10.1 10*3/uL (2.3-7.9); NEUT % 81.4 % (47.0-73.0); PLATELET COUNT AUTOMATED 326 10*3/uL (130-400); RED BLOOD COUNT 4.67 10*6/uL (4.10-5.10); RED CELL DISTRI WIDTH 12.9 % (0-14.5); WHITE BLOOD COUNT 12.4 10*3/uL (4.8-10.8)
[2022-03-10 19:33] LABS: ALKALINE PHOSPHATASE 115 U/L (45-117); BUN 11 mg/dl (7-24); CHLORIDE 100 mmol/L (98-107); CREATININE 0.73 mg/dL (0.55-1.02); POTASSIUM 3.4 mmol/L (3.5-5.1); SGOT/AST 20 IU/L (3-35); SGPT/ALT 26 U/L (12-78); SODIUM 137 mmol/L (136-145); TOTAL PROTEIN 7.9 gm/dL (6.4-8.2)
[2022-03-10 19:33] LABS: URINE AMPHETAMINES < 1000 (1000ng/ml); URINE BARBITURATES < 200 (200ng/ml); URINE BENZODIAZEPINES < 200 (200ng/ml); URINE CANNABINOIDS (THC) < 50 (50ng/ml); URINE COCAINE < 300 (300ng/ml); URINE METHADONE < 300 (300ng/ml); URINE OPIATES < 300 (300ng/ml)
[2022-03-10 19:34] LABS: ACETAMINOPHEN (TYLENOL) < 5.0 ug/ml (10-30); ETHYL ALCOHOL < 3.0 mg/dl (<3)
[2022-03-10 19:34] LABS: URINE PHENCYCLIDINE < 25 (25ng/ml)
[2022-03-10 21:08] LABS: BILIRUBIN Negative (Negative); BLOOD Negative (Negative); CLARITY Cloudy (Clear); COLOR Yellow (Yellow); GLUCOSE Negative (Negative); KETONE Negative (Negative); LEUKO ESTERASE 2+ (Negative); NITRITE Negative (Negative); PH 6.5 (4.5-8.0)
[2022-03-10 21:13] LABS: BACTERIA 4+; WBC 16-20 wbc/hpf (0-5)
[2022-03-10] MEDS ORDERED: LASIX20 MG PO (21:43)
[2022-03-10] MEDS ORDERED: INVEGA SUSTENN234 MG IM (21:48)
[2022-03-10] MEDS ORDERED: INVEGA6 MG PO (21:50)
[2022-03-10] MEDS ORDERED: LACTULOSE20 GM/30 M PO (21:54)
[2022-03-10] MEDS ORDERED: LEVOTHYROXINE125 MCG PO (21:57)
[2022-03-10] MEDS ORDERED: COZAAR50 M1 PO (21:58)
[2022-03-10] MEDS ORDERED: MIRALAX17 GM PO (22:02)
[2022-03-10] MEDS ORDERED: MULTI-VITAMIN1 EACH PO (22:07)
[2022-03-10] MEDS ORDERED: PANTOPRAZOLE SO40 MG PO (22:10)
[2022-03-10] MEDS ORDERED: HALOPERIDOL2 M1 PO (22:14)
[2022-03-10] MEDS ORDERED: POTASSIUM CHLO10 ME5 PO (22:19)
[2022-03-10] MEDS ORDERED: DULCOLAX5 M1 PO (22:22)
[2022-03-10] MEDS ORDERED: GUAIFENESI100 MG/56 PO (22:27)
[2022-03-10] MEDS ORDERED: IBUPROFEN400 MG PO (22:28)
[2022-03-10] MEDS ORDERED: OXYGEN NAS (22:30)
[2022-03-10] MEDS ORDERED: NYSTATIN15 GM T (22:34)
[2022-03-10] MEDS ORDERED: BENZONATATE100 M1 PO (22:36)
[2022-03-10] MEDS ORDERED: ZOFRAN4 MG PO (22:37)
[2022-03-10] MEDS ORDERED: ALDACTONE25 M1 PO (22:41)
== END 2022-03-10 22:58 | disposition admitted as inpatient to this hospital (09) ==
LOC: ED 18:24
PROVIDERS: Internal Medicine
DX: F91.9 Conduct disorder, unspecified (principal); Z20.822 Contact with and (suspected) exposure to COVID-19; D72.829 Elevated white blood cell count, unspecified; E87.6 Hypokalemia

== ENCOUNTER 2022-03-10 20:43 | Inpatient (IN) | payer MEDICARE, MEDICAID ==
[~2022-03-10] VITALS: Ht 154.9 cm; Wt 82.1 kg
[2022-03-10 21:37] VITALS: BP 123/58
[2022-03-10] MEDS ORDERED: LASIX20 MG PO (21:43)
[2022-03-10] MEDS ORDERED: INVEGA SUSTENN234 MG IM (21:48)
[2022-03-10] MEDS ORDERED: INVEGA6 MG PO (21:50)
[2022-03-10] MEDS ORDERED: LACTULOSE20 GM/30 M PO (21:54)
[2022-03-10] MEDS ORDERED: LEVOTHYROXINE125 MCG PO (21:57)
[2022-03-10] MEDS ORDERED: COZAAR50 M1 PO (21:58)
[2022-03-10] MEDS ORDERED: MIRALAX17 GM PO (22:02)
[2022-03-10] MEDS ORDERED: MULTI-VITAMIN1 EACH PO (22:07)
[2022-03-10] MEDS ORDERED: PANTOPRAZOLE SO40 MG PO (22:10)
[2022-03-10] MEDS ORDERED: HALOPERIDOL2 M1 PO (22:14)
[2022-03-10] MEDS ORDERED: POTASSIUM CHLO10 ME5 PO (22:19)
[2022-03-10] MEDS ORDERED: DULCOLAX5 M1 PO (22:22)
[2022-03-10] MEDS ORDERED: GUAIFENESI100 MG/56 PO (22:27)
[2022-03-10] MEDS ORDERED: IBUPROFEN400 MG PO (22:28)
[2022-03-10] MEDS ORDERED: OXYGEN NAS (22:30)
[2022-03-10] MEDS ORDERED: NYSTATIN15 GM T (22:34)
[2022-03-10] MEDS ORDERED: BENZONATATE100 M1 PO (22:36)
[2022-03-10] MEDS ORDERED: ZOFRAN4 MG PO (22:37)
[2022-03-10] MEDS ORDERED: ALDACTONE25 M1 PO (22:41)
[2022-03-11 06:39] LABS: THYROID STIM HORMONE (HS) 4.83 uIU/ml (0.358-4.75)
[2022-03-11 07:30] VITALS: BP 116/62
[2022-03-11 09:01] LABS: VITAMIN D, 25-HYDROXY 59.8 ng/mL (30-100)
[2022-03-11 18:45] VITALS: BP 120/49
[2022-03-12 08:07] VITALS: BP 121/47
[2022-03-12 20:00] VITALS: BP 96/54
[2022-03-13 08:21] VITALS: BP 135/59
[2022-03-13 20:00] VITALS: BP 121/67
[2022-03-14 07:53] VITALS: BP 146/68
[2022-03-14 20:00] VITALS: BP 127/68
[2022-03-15 07:53] VITALS: BP 140/51
[2022-03-15 20:00] VITALS: BP 90/58
[2022-03-16 08:00] VITALS: BP 102/67
[2022-03-16 20:00] VITALS: BP 110/52
[2022-03-17 08:04] VITALS: BP 118/54
[2022-03-17 20:00] VITALS: BP 112/52
[2022-03-18 07:52] VITALS: BP 146/53
[2022-03-18 11:57] LABS: BILIRUBIN Negative (Negative); BLOOD Negative (Negative); CLARITY Clear (Clear); COLOR Yellow (Yellow); GLUCOSE Negative (Negative); KETONE 1+ (Negative); LEUKO ESTERASE Trace (Negative); NITRITE Negative (Negative); PH 7.5 (4.5-8.0); UROBILINOGEN 0.2 E.U./dl (0.0-1.0)
[2022-03-18 12:06] LABS: EPITHELIAL CELLS 21-30
[2022-03-18 12:07] LABS: BACTERIA 2+; RBC 0-2 rbc/hpf (0-2)
[2022-03-18 12:45] LABS: BASO % 0.2 % (0.0-1.0); EOS % 0.2 % (1.0-4.0); HEMATOCRIT 41.5 % (37.0-47.0); LYMPH # 0.9 10*3/uL (1.3-4.4); LYMPH % 6.9 % (27.0-41.0); MEAN CELL VOLUME 94.3 fl (81.0-99.0); MEAN CORPUSCULAR HGB 30.5 pg (27.0-31.0); MEAN CORPUSCULAR HGB CONC 32.3 g/dl (33.0-37.0); MEAN PLATELET VOLUME 10.8 fl (9.6-12.3); MONO # 0.7 10*3/uL (0.1-1.0); MONO % 5.7 % (3.0-9.0); NEUT # 10.7 10*3/uL (2.3-7.9); NEUT % 86.6 % (47.0-73.0); PLATELET COUNT AUTOMATED 306 10*3/uL (130-400); RED CELL DISTRI WIDTH 12.6 % (0-14.5); WHITE BLOOD COUNT 12.3 10*3/uL (4.8-10.8)
[2022-03-18 13:11] LABS: BUN 7 mg/dl (7-24); CHLORIDE 103 mmol/L (98-107); CREATININE 0.69 mg/dL (0.55-1.02); POTASSIUM 4.2 mmol/L (3.5-5.1); SGOT/AST 19 IU/L (3-35); SGPT/ALT 19 U/L (12-78); SODIUM 134 mmol/L (136-145)
[2022-03-18 13:13] LABS: ALKALINE PHOSPHATASE 89 U/L (45-117); TOTAL PROTEIN 7.3 gm/dL (6.4-8.2)
[2022-03-18 20:00] VITALS: BP 124/69
[2022-03-19 07:36] VITALS: BP 123/53
[2022-03-19 20:00] VITALS: BP 118/66
[2022-03-20 07:00] VITALS: BP 114/51
[2022-03-20 18:18] VITALS: BP 106/58
[2022-03-21 07:19] VITALS: BP 138/60
[2022-03-21 19:08] VITALS: BP 108/54
[2022-03-22 07:17] VITALS: BP 126/63
[2022-03-23 07:28] VITALS: BP 149/54
[2022-03-23 18:58] VITALS: BP 117/60
[2022-03-24 06:26] LABS: ALKALINE PHOSPHATASE 86 U/L (45-117); BUN 11 mg/dl (7-24); CHLORIDE 102 mmol/L (98-107); CREATININE 0.65 mg/dL (0.55-1.02); POTASSIUM 3.8 mmol/L (3.5-5.1); SGOT/AST 15 IU/L (3-35); SGPT/ALT 16 U/L (12-78); SODIUM 134 mmol/L (136-145); TOTAL PROTEIN 7.3 gm/dL (6.4-8.2)
[2022-03-24 07:05] LABS: BASO # 0.1 10*3/uL (0.0-0.1); BASO % 0.3 % (0.0-1.0); EOS # 0.2 10*3/uL (0.0-0.4); EOS % 1.5 % (1.0-4.0); HEMATOCRIT 43.8 % (37.0-47.0); LYMPH # 1.7 10*3/uL (1.3-4.4); LYMPH % 11.3 % (27.0-41.0); MEAN CELL VOLUME 94.4 fl (81.0-99.0); MEAN CORPUSCULAR HGB CONC 31.7 g/dl (33.0-37.0); MEAN PLATELET VOLUME 11.4 fl (9.6-12.3); MONO # 0.9 10*3/uL (0.1-1.0); MONO % 6.1 % (3.0-9.0); NEUT % 80.4 % (47.0-73.0); PLATELET COUNT AUTOMATED 345 10*3/uL (130-400); RED BLOOD COUNT 4.64 10*6/uL (4.10-5.10); RED CELL DISTRI WIDTH 12.6 % (0-14.5)
[2022-03-24 07:24] VITALS: BP 150/65
[2022-03-24 20:00] VITALS: BP 132/82
[2022-03-25 07:24] VITALS: BP 115/56
[2022-03-25 20:00] VITALS: BP 122/58
[2022-03-26 07:24] VITALS: BP 139/57
[2022-03-26] MEDS ORDERED: INVEGA SUSTENN234 MG IM (10:29)
[2022-03-26] MEDS ORDERED: RIVASTIGMINE1 EAC2 T (10:29)
[2022-03-26] MEDS ORDERED: MEMANTINE HCL10 MG PO (10:29)
[2022-03-26] MEDS ORDERED: LITHIUM CARB300 MG PO (10:29)
[2022-03-26] MEDS ORDERED: BENZTROPINE MESY1 MG PO (10:29)
== END 2022-03-26 12:28 | DRG 885 ==
LOC: 3N 20:43
PROVIDERS: Registered Nurse; ADMIT Psychiatry & Neurology Psychiatry; ATTEND Psychiatry & Neurology Psychiatry
DX: F25.0 Schizoaffective disorder, bipolar type (principal); N30.00 Acute cystitis without hematuria; F32.3 Major depressive disorder, single episode, severe with psychotic features; F31.9 Bipolar disorder, unspecified; I10 Essential (primary) hypertension; E78.5 Hyperlipidemia, unspecified; E03.9 Hypothyroidism, unspecified; F41.9 Anxiety disorder, unspecified; E87.6 Hypokalemia; D72.829 Elevated white blood cell count, unspecified; R73.9 Hyperglycemia, unspecified; E83.41 Hypermagnesemia; S61.411A Laceration without foreign body of right hand, initial encounter; X58.XXXA Exposure to other specified factors, initial encounter; Y93.89 Activity, other specified; Z88.0 Allergy status to penicillin; Z88.8 Allergy status to other drugs, medicaments and biological substances; Z88.6 Allergy status to analgesic agent; Z91.041 Radiographic dye allergy status; Y92.89 Other specified places as the place of occurrence of the external cause; Y99.8 Other external cause status; G30.9 Alzheimer's disease, unspecified; F02.80 Dementia in other diseases classified elsewhere, unspecified severity, without behavioral disturbance, psychotic disturbance, mood disturbance, and anxiety

== ENCOUNTER 2022-04-23 13:08 | Emergency (ER) | payer MEDICARE, MEDICAID ==
[~2022-04-23] VITALS: Ht 154.9 cm; Wt 78.9 kg
[~2022-04-23 13:08] MED LIST changes: +ALDACTONE25 M1 PO; +BENZONATATE100 M1 PO; +COZAAR50 M1 PO; +DULCOLAX5 M1 PO; +GUAIFENESI100 MG/56 PO; +HALOPERIDOL2 M1 PO; +IBUPROFEN400 MG PO; +INVEGA SUSTENN234 MG IM; +INVEGA6 MG PO; +LASIX20 MG PO; +LEVOTHYROXINE125 MCG PO; +LITHIUM CARB300 MG PO; +MIRALAX17 GM PO; +MULTI-VITAMIN1 EACH PO; +NYSTATIN15 GM T; +OXYGEN NAS; +PANTOPRAZOLE SO40 MG PO; +POTASSIUM CHLO10 ME5 PO; +RIVASTIGMINE1 EAC2 T; +ZOFRAN4 MG PO
[2022-04-23] MEDS ORDERED: VISTARIL50 MG PO (13:30)
[2022-04-23] MEDS ORDERED: MILK OF MA2400 MG/10 PO (13:32)
[2022-04-23] MEDS ORDERED: CAPLYTA42 MG PO (13:35)
[2022-04-23] MEDS ORDERED: ESTRACE 0.01%42.5 GM V (13:38)
[2022-04-23] MEDS ORDERED: INVEGA SUSTENN156 MG IM (13:39)
[2022-04-23 17:12] LABS: BASO % 0.2 % (0.0-1.0); EOS # 0.1 10*3/uL (0.0-0.4); EOS % 1.2 % (1.0-4.0); HEMATOCRIT 37.5 % (37.0-47.0); LYMPH # 1.6 10*3/uL (1.3-4.4); LYMPH % 15.5 % (27.0-41.0); MEAN CELL VOLUME 96.4 fl (81.0-99.0); MEAN CORPUSCULAR HGB 30.8 pg (27.0-31.0); MEAN PLATELET VOLUME 10.9 fl (9.6-12.3); MONO # 0.8 10*3/uL (0.1-1.0); MONO % 7.7 % (3.0-9.0); NEUT # 7.5 10*3/uL (2.3-7.9); NEUT % 75.1 % (47.0-73.0); PLATELET COUNT AUTOMATED 280 10*3/uL (130-400); RED BLOOD COUNT 3.89 10*6/uL (4.10-5.10); RED CELL DISTRI WIDTH 13.2 % (0-14.5)
[2022-04-23 17:29] LABS: ALKALINE PHOSPHATASE 89 U/L (45-117); BUN 10 mg/dl (7-24); CHLORIDE 105 mmol/L (98-107); POTASSIUM 4.1 mmol/L (3.5-5.1); SGOT/AST 17 IU/L (3-35); SGPT/ALT 19 U/L (12-78); SODIUM 138 mmol/L (136-145); TOTAL PROTEIN 7.2 gm/dL (6.4-8.2)
[2022-04-23 18:38] LABS: ACETAMINOPHEN (TYLENOL) < 5.0 ug/ml (10-30); ETHYL ALCOHOL < 3.0 mg/dl (<3)
[2022-04-23 18:42] LABS: THYROID STIM HORMONE (HS) 0.996 uIU/ml (0.358-4.75)
[2022-04-23 18:49] LABS: BILIRUBIN Negative (Negative); BLOOD Negative (Negative); CLARITY Clear (Clear); COLOR Yellow (Yellow); GLUCOSE Negative (Negative); KETONE Negative (Negative); LEUKO ESTERASE Trace (Negative); NITRITE Negative (Negative); UROBILINOGEN 0.2 E.U./dl (0.0-1.0)
[2022-04-23 18:57] LABS: URINE AMPHETAMINES < 1000 (1000ng/ml); URINE BARBITURATES < 200 (200ng/ml); URINE BENZODIAZEPINES < 200 (200ng/ml); URINE CANNABINOIDS (THC) < 50 (50ng/ml); URINE COCAINE < 300 (300ng/ml); URINE METHADONE < 300 (300ng/ml); URINE OPIATES < 300 (300ng/ml)
[2022-04-23 18:59] LABS: URINE PHENCYCLIDINE < 25 (25ng/ml)
[2022-04-23 19:03] LABS: BACTERIA 2+; EPITHELIAL CELLS 41-50
[2022-05-05] MEDS ORDERED: RAMELTEON8 MG PO (09:56)
[2022-05-05] MEDS ORDERED: LAMOTRIGINE100 MG PO (09:56)
[2022-05-05] MEDS ORDERED: Lidoderm 5% Patch T (09:56)
[2022-05-05] MEDS ORDERED: BENZTROPINE MESY1 MG PO (09:56)
[2022-05-05] MEDS ORDERED: LACTULOSE20 GM/30 M PO (09:56)
[2022-05-05] MEDS ORDERED: INVEGA SUSTENN156 MG IM (09:56)
[2022-05-05] MEDS ORDERED: RIVASTIGMINE1 EAC2 T (09:56)
[2022-05-05] MEDS ORDERED: TRINTELLIX10 MG PO (10:00)
== END 2022-04-23 20:19 ==
LOC: ED 13:08
PROVIDERS: Physician Assistant
DX: F25.9 Schizoaffective disorder, unspecified (principal); Z20.822 Contact with and (suspected) exposure to COVID-19; Z88.0 Allergy status to penicillin; Z91.041 Radiographic dye allergy status; Z88.8 Allergy status to other drugs, medicaments and biological substances; Z79.899 Other long term (current) drug therapy; Z79.82 Long term (current) use of aspirin

== ENCOUNTER 2022-06-13 13:11 | Emergency (ER) | payer MEDICARE, MEDICAID ==
[~2022-06-13] VITALS: Ht 154.9 cm; Wt 83.5 kg
[~2022-06-13 13:11] MED LIST changes: +CAPLYTA42 MG PO; +ESTRACE 0.01%42.5 GM V; +LAMOTRIGINE100 MG PO; +Lidoderm 5% Patch T; +MILK OF MA2400 MG/10 PO; +RAMELTEON8 MG PO; +TRINTELLIX10 MG PO; +VISTARIL50 MG PO
[2022-06-13 14:26] LABS: BASO % 0.1 % (0.0-1.0); EOS % 0.1 % (1.0-4.0); HEMATOCRIT 41.4 % (37.0-47.0); LYMPH # 0.7 10*3/uL (1.3-4.4); LYMPH % 10.9 % (27.0-41.0); MEAN CELL VOLUME 99.3 fl (81.0-99.0); MEAN CORPUSCULAR HGB 30.7 pg (27.0-31.0); MEAN CORPUSCULAR HGB CONC 30.9 g/dl (33.0-37.0); MEAN PLATELET VOLUME 11.4 fl (9.6-12.3); MONO # 0.5 10*3/uL (0.1-1.0); MONO % 6.9 % (3.0-9.0); NEUT # 5.6 10*3/uL (2.3-7.9); NEUT % 81.7 % (47.0-73.0); PLATELET COUNT AUTOMATED 218 10*3/uL (130-400); RED BLOOD COUNT 4.17 10*6/uL (4.10-5.10); RED CELL DISTRI WIDTH 12.9 % (0-14.5); WHITE BLOOD COUNT 6.8 10*3/uL (4.8-10.8)
[2022-06-13 14:48] LABS: ALKALINE PHOSPHATASE 75 U/L (45-117); BUN 19 mg/dl (7-24); CHLORIDE 106 mmol/L (98-107); CREATININE 0.73 mg/dL (0.55-1.02); POTASSIUM 3.8 mmol/L (3.5-5.1); SGOT/AST 60 IU/L (3-35); SGPT/ALT 38 U/L (12-78); SODIUM 139 mmol/L (136-145); TOTAL PROTEIN 7.2 gm/dL (6.4-8.2)
[2022-06-13] MEDS ORDERED: VISTARIL25 MG PO (16:16)
[2022-06-13] MEDS ORDERED: ANTI-DIARRHEAL2 MG PO (16:17)
== END 2022-06-13 19:06 | disposition admitted as inpatient to this hospital (09) ==
LOC: ED 13:11
PROVIDERS: Physician Assistant
DX: F25.9 Schizoaffective disorder, unspecified (principal); Z20.822 Contact with and (suspected) exposure to COVID-19; F31.9 Bipolar disorder, unspecified; Z88.0 Allergy status to penicillin; Z88.8 Allergy status to other drugs, medicaments and biological substances; Z91.041 Radiographic dye allergy status; Z79.899 Other long term (current) drug therapy; Z79.82 Long term (current) use of aspirin

== ENCOUNTER 2022-06-13 15:54 | Inpatient (IN) | payer MEDICARE, MEDICAID ==
[~2022-06-13] VITALS: Ht 154.9 cm; Wt 70.8 kg
[2022-06-13 16:05] VITALS: BP 147/62
[2022-06-13] MEDS ORDERED: VISTARIL25 MG PO (16:16)
[2022-06-13] MEDS ORDERED: ANTI-DIARRHEAL2 MG PO (16:17)
[2022-06-13 17:36] LABS: BILIRUBIN 2+ (Negative); BLOOD Negative (Negative); COLOR Dark Yellow (Yellow); GLUCOSE Negative (Negative); KETONE 1+ (Negative); LEUKO ESTERASE Trace (Negative); NITRITE Negative (Negative); PH 5.5 (4.5-8.0); SPECIFIC GRAVITY 1.025 (1.001-1.030)
[2022-06-13 17:37] LABS: CLARITY Cloudy (Clear)
[2022-06-13 17:47] LABS: BACTERIA 3+; EPITHELIAL CELLS TNTC; MUCOUS 2+
[2022-06-13 20:00] VITALS: BP 110/54
[2022-06-14 07:35] LABS: ALKALINE PHOSPHATASE 71 U/L (45-117); BUN 19 mg/dl (7-24); CHLORIDE 107 mmol/L (98-107); CHOLESTEROL 143 mg/dL (<200); CREATININE 0.59 mg/dL (0.55-1.02); LDL CHOLESTEROL 68 mg/dL (9-159); POTASSIUM 3.8 mmol/L (3.5-5.1); SGOT/AST 43 IU/L (3-35); SGPT/ALT 32 U/L (12-78); SODIUM 143 mmol/L (136-145); TOTAL PROTEIN 6.6 gm/dL (6.4-8.2); TRIGLYCERIDES 104 mg/dl (<150)
[2022-06-14 08:00] VITALS: BP 151/60
[2022-06-14 08:21] LABS: VITAMIN D, 25-HYDROXY 36.5 ng/mL (30-100)
[2022-06-14 20:00] VITALS: BP 123/58
[2022-06-15 08:00] VITALS: BP 152/64
[2022-06-15 20:00] VITALS: BP 104/50
[2022-06-16 07:08] VITALS: BP 114/62
[2022-06-16 20:00] VITALS: BP 92/50
[2022-06-17 07:43] VITALS: BP 132/87
[2022-06-17 20:00] VITALS: BP 121/54
[2022-06-18 08:00] VITALS: BP 148/66
[2022-06-18 19:10] VITALS: BP 98/43
[2022-06-18 21:15] VITALS: BP 126/62
[2022-06-19 08:00] VITALS: BP 136/61
[2022-06-19 20:00] VITALS: BP 110/41
[2022-06-20 07:20] VITALS: BP 110/41
[2022-06-20 20:00] VITALS: BP 112/49
[2022-06-21 07:18] VITALS: BP 141/59
[2022-06-21 11:03] LABS: BASO % 0.3 % (0.0-1.0); EOS % 0.3 % (1.0-4.0); HEMATOCRIT 39.2 % (37.0-47.0); LYMPH # 0.6 10*3/uL (1.3-4.4); LYMPH % 10.1 % (27.0-41.0); MEAN CELL VOLUME 97.5 fl (81.0-99.0); MEAN CORPUSCULAR HGB 30.6 pg (27.0-31.0); MEAN CORPUSCULAR HGB CONC 31.4 g/dl (33.0-37.0); MONO # 0.4 10*3/uL (0.1-1.0); MONO % 6.8 % (3.0-9.0); NEUT # 5.2 10*3/uL (2.3-7.9); NEUT % 82.2 % (47.0-73.0); PLATELET COUNT AUTOMATED 231 10*3/uL (130-400); RED BLOOD COUNT 4.02 10*6/uL (4.10-5.10); RED CELL DISTRI WIDTH 12.7 % (0-14.5); WHITE BLOOD COUNT 6.4 10*3/uL (4.8-10.8)
[2022-06-21 11:20] LABS: ALKALINE PHOSPHATASE 77 U/L (45-117); BUN 7 mg/dl (7-24); CHLORIDE 106 mmol/L (98-107); CREATININE 0.73 mg/dL (0.55-1.02); POTASSIUM 3.3 mmol/L (3.5-5.1); SGOT/AST 25 IU/L (3-35); SGPT/ALT 29 U/L (12-78); SODIUM 141 mmol/L (136-145); TOTAL PROTEIN 6.2 gm/dL (6.4-8.2)
[2022-06-21 20:00] VITALS: BP 160/76
[2022-06-21 20:54] LABS: BILIRUBIN Negative (Negative); BLOOD Negative (Negative); CLARITY Cloudy (Clear); COLOR Yellow (Yellow); GLUCOSE Negative (Negative); KETONE Negative (Negative); LEUKO ESTERASE Trace (Negative); NITRITE Negative (Negative); PH 6.5 (4.5-8.0); SPECIFIC GRAVITY 1.015 (1.001-1.030)
[2022-06-21 21:28] LABS: BACTERIA 1+; CALCIUM OXALATE CRYSTALS 1+; EPITHELIAL CELLS TNTC; RBC 0-2 rbc/hpf (0-2)
[2022-06-22 07:00] VITALS: BP 112/48
[2022-06-22 13:00] VITALS: BP 114/47
[2022-06-22 20:00] VITALS: BP 111/56
[2022-06-23 07:56] VITALS: BP 172/80
[2022-06-23 10:26] VITALS: BP 124/64
[2022-06-23 20:00] VITALS: BP 110/56
[2022-06-24 07:40] VITALS: BP 158/78
[2022-06-24 20:00] VITALS: BP 118/38
[2022-06-25 07:00] VITALS: BP 134/74
[2022-06-25 08:00] VITALS: BP 161/50
[2022-06-25 15:49] LABS: BILIRUBIN Negative (Negative); BLOOD Negative (Negative); CLARITY Cloudy (Clear); COLOR Yellow (Yellow); GLUCOSE Negative (Negative); KETONE Negative (Negative); LEUKO ESTERASE Trace (Negative); NITRITE Negative (Negative); PH 7.5 (4.5-8.0); SPECIFIC GRAVITY 1.015 (1.001-1.030); UROBILINOGEN 0.2 E.U./dl (0.0-1.0)
[2022-06-25 16:17] LABS: BACTERIA 1+; EPITHELIAL CELLS TNTC
[2022-06-25 20:00] VITALS: BP 122/62; BP 161/50
[2022-06-26 07:18] VITALS: BP 111/47
[2022-06-26 20:00] VITALS: BP 109/67
[2022-06-27 07:05] VITALS: BP 128/64
[2022-06-27 20:00] VITALS: BP 114/52
[2022-06-28 07:46] VITALS: BP 145/58
[2022-06-28 20:00] VITALS: BP 136/54
[2022-06-29 08:11] VITALS: BP 145/69
[2022-06-29 20:00] VITALS: BP 155/69
[2022-06-30 07:19] LABS: HEMATOCRIT 39.6 % (37.0-47.0); MEAN CELL VOLUME 93.8 fl (81.0-99.0); MEAN CORPUSCULAR HGB CONC 33.1 g/dl (33.0-37.0); MEAN PLATELET VOLUME 10.8 fl (9.6-12.3); PLATELET COUNT AUTOMATED 308 10*3/uL (130-400); RED BLOOD COUNT 4.22 10*6/uL (4.10-5.10); RED CELL DISTRI WIDTH 12.5 % (0-14.5); WHITE BLOOD COUNT 9.8 10*3/uL (4.8-10.8)
[2022-06-30 07:24] LABS: MANUAL DIFF REFLEX YES
[2022-06-30 07:54] LABS: PLATELET SUFFICIENCY NORMAL (NORMAL); TOTAL CELLS COUNTED 100 #CELLS
[2022-06-30 07:55] VITALS: BP 145/65
[2022-06-30 08:00] LABS: ALKALINE PHOSPHATASE 82 U/L (45-117); BUN 13 mg/dl (7-24); CHLORIDE 105 mmol/L (98-107); CREATININE 0.55 mg/dL (0.55-1.02); POTASSIUM 4.2 mmol/L (3.5-5.1); SGOT/AST 19 IU/L (3-35); SGPT/ALT 21 U/L (12-78); SODIUM 140 mmol/L (136-145); TOTAL PROTEIN 6.8 gm/dL (6.4-8.2)
[2022-06-30 18:25] LABS: BILIRUBIN Negative (Negative); BLOOD Negative (Negative); CLARITY Cloudy (Clear); COLOR Yellow (Yellow); GLUCOSE Negative (Negative); KETONE 3+ (Negative); LEUKO ESTERASE Negative (Negative); NITRITE Negative (Negative); SPECIFIC GRAVITY 1.025 (1.001-1.030)
[2022-06-30 18:55] LABS: BACTERIA TRACE; MUCOUS 3+; WBC 0-2 wbc/hpf (0-5)
[2022-07-01 07:10] LABS: BASO % 0.4 % (0.0-1.0); EOS % 0.3 % (1.0-4.0); LYMPH # 1.1 10*3/uL (1.3-4.4); LYMPH % 12.3 % (27.0-41.0); MEAN CELL VOLUME 96.4 fl (81.0-99.0); MEAN CORPUSCULAR HGB 30.7 pg (27.0-31.0); MEAN CORPUSCULAR HGB CONC 31.9 g/dl (33.0-37.0); MEAN PLATELET VOLUME 10.9 fl (9.6-12.3); MONO # 0.6 10*3/uL (0.1-1.0); MONO % 6.9 % (3.0-9.0); NEUT # 7.3 10*3/uL (2.3-7.9); NEUT % 79.7 % (47.0-73.0); PLATELET COUNT AUTOMATED 295 10*3/uL (130-400); RED BLOOD COUNT 3.84 10*6/uL (4.10-5.10); RED CELL DISTRI WIDTH 12.7 % (0-14.5); WHITE BLOOD COUNT 9.2 10*3/uL (4.8-10.8)
[2022-07-01 07:30] LABS: BUN 15 mg/dl (7-24); CHLORIDE 106 mmol/L (98-107); CREATININE 0.59 mg/dL (0.55-1.02); POTASSIUM 3.6 mmol/L (3.5-5.1); SODIUM 143 mmol/L (136-145)
[2022-07-01 07:48] VITALS: BP 135/66
[2022-07-01] MEDS ORDERED: LACTULOSE20 GM/30 M PO (10:01)
[2022-07-01] MEDS ORDERED: RIVASTIGMINE1 EAC2 T (10:01)
[2022-07-01] MEDS ORDERED: TRIFLUOPERAZINE2 M1 PO (10:01)
[2022-07-01] MEDS ORDERED: INVEGA SUSTENN156 MG IM (10:01)
[2022-07-01] MEDS ORDERED: MEMANTINE HCL10 MG PO (10:01)
[2022-07-01] MEDS ORDERED: TRINTELLIX20 MG PO (10:01)
[2022-07-01] MEDS ORDERED: TRIHEXYPHENIDYL2 M3 PO (10:01)
[2022-07-01] MEDS ORDERED: CIPRO500 MG PO (11:40)
== END 2022-07-01 12:06 | DRG 885 ==
LOC: 3N 15:54
PROVIDERS: Counselor Professional; Registered Nurse; ADMIT Psychiatry & Neurology Psychiatry; ATTEND Psychiatry & Neurology Psychiatry
DX: F25.0 Schizoaffective disorder, bipolar type (principal); E44.0 Moderate protein-calorie malnutrition; Z20.822 Contact with and (suspected) exposure to COVID-19; F41.9 Anxiety disorder, unspecified; E03.9 Hypothyroidism, unspecified; I10 Essential (primary) hypertension; E55.9 Vitamin D deficiency, unspecified; E78.5 Hyperlipidemia, unspecified; K21.9 Gastro-esophageal reflux disease without esophagitis; E53.8 Deficiency of other specified B group vitamins; E87.6 Hypokalemia; R73.9 Hyperglycemia, unspecified; Z91.041 Radiographic dye allergy status; Z88.0 Allergy status to penicillin; Z88.5 Allergy status to narcotic agent; Z88.8 Allergy status to other drugs, medicaments and biological substances; Z68.29 Body mass index [BMI] 29.0-29.9, adult